=== PATIENT | female | born 1985 | race Caucasian/White ===

== ENCOUNTER 2021-11-13 11:10 | Outpatient (REF) | payer OTHER, SELFPAY ==
[2021-11-13 13:37] LABS: BV Int Neg Control Negative (Negative); BV Int Pos Control Positive (Positive)
== END 2021-11-13 11:11 | disposition home or self-care (01) ==
LOC: HO.LNP 11:10
PROVIDERS: Visit Provider Internal Medicine
DX: N34.2 Other urethritis (principal)
CPT/HCPCS: 87480; 87510; 87660

== ENCOUNTER 2021-11-13 11:11 | Outpatient (REF) | payer OTHER, SELFPAY ==
[2021-11-13 14:09] LABS: CT PCR NOT DETECTED (Not Detect.); NG PCR NOT DETECTED (Not Detect.)
== END 2021-11-13 11:12 | disposition home or self-care (01) ==
LOC: HO.LNP 11:11
PROVIDERS: Visit Provider Internal Medicine
DX: Z11.3 Encounter for screening for infections with a predominantly sexual mode of transmission (principal); N34.2 Other urethritis
CPT/HCPCS: 87491; 87591

== ENCOUNTER 2021-12-09 12:08 | Outpatient (REF) | payer OTHER, SELFPAY ==
[2021-12-09 13:38] LABS: MANUAL DIFF FLAG NO
[2021-12-09 13:43] LABS: Basophils Percent Auto 0.6 % (0-2); Eosinophils Percent Auto 0.4 % (0-4); Hematocrit 39.4 % (37.0-47.0); Hemoglobin 12.8 g/dl (12.0-16.0); Imm Gran Abs Auto 0.01 X10*3/uL (0.00-0.03); Imm Gran Pct Auto 0.2 % (0.0-0.4); Lymphocytes Absolute Auto 1.7 X10*3/uL (1.2-4.9); Lymphocytes Percent Auto 34.5 % (20-40); Mean Corpuscular HGB Conc 32.5 g/dl (31.0-35.0); Mean Corpuscular Hemoglobin 28.4 pg (27.0-33.0); Mean Corpuscular Volume 87.4 fL (80.0-98.0); Mean Platelet Volume 9.5 fL (9.4-12.3); Monocytes Absolute Auto 0.6 X10*3/uL (0.1-1.2); Monocytes Percent Auto 11.4 % (2-11); Neutrophils Absolute Auto 2.6 x10*3/uL (2.0-8.3); Neutrophils Percent Auto 52.9 % (45-73); Platelet Count 322 X10*3/uL (160-400); Red Blood Count 4.51 X10*6/uL (4.20-5.50); Red Cell Distribution Width 13.2 % (11.0-16.0)
[2021-12-09 13:55] LABS: Alanine Aminotransferase 24 U/L (0-31); Albumin Level 4.4 g/dL (3.5-5.0); Alkaline Phosphatase 47 U/L (39-117); Anion Gap 12 (12-20); Aspartate Amino Transferase 22 U/L (5-31); Bilirubin Total 0.5 mg/dL (0.0-1.0); Blood Urea Nitrogen 8 mg/dL (9-16); Calcium 9.1 mg/dL (8.4-10.2); Carbon Dioxide 20 mmol/L (22-29); Chloride 108 mmol/L (96-108); Estimated Glomerular Filt Rate > 60; Glucose Random 91 mg/dL (60-115); Potassium 3.7 mmol/L (3.3-5.1); Sodium 136 mmol/L (135-145); Total Protein 8.3 g/dL (6.5-8.0)
[2021-12-09 15:30] LABS: CT PCR NOT DETECTED (Not Detect.); NG PCR NOT DETECTED (Not Detect.)
[2021-12-10 09:35] LABS: BV Int Neg Control Negative (Negative); BV Int Pos Control Positive (Positive)
== END 2021-12-09 12:09 | disposition home or self-care (01) ==
LOC: HO.HMGCLDS 12:08
PROVIDERS: PCP Internal Medicine; Visit Provider Internal Medicine
DX: Z11.3 Encounter for screening for infections with a predominantly sexual mode of transmission (principal); R10.2 Pelvic and perineal pain; N89.8 Other specified noninflammatory disorders of vagina
CPT/HCPCS: 36415; 80053; 85025; 87480; 87491; 87510; 87591; 87660

== ENCOUNTER 2021-12-10 10:07 | Outpatient (REF) | payer OTHER, SELFPAY ==
[2021-12-10 11:14] LABS: Appearance Urine CLEAR; Color Urine YELLOW; Glucose Urine UA NEG (NEG); Leukocyte Esterase Urine NEG (NEG); Nitrite Urine POS (NEG); UACC Culture Trigger YES; Urine Blood NEG (NEG); Urine Ketones NEG (NEG); Urine Protein NEG (NEG-TRACE)
[2021-12-10 12:15] LABS: RBC Urine 0 /HPF (0); Squamous Epithelial Cell Urine TRACE /LPF; WBC Urine 0 /HPF (0-4)
== END 2021-12-10 10:08 | disposition home or self-care (01) ==
LOC: HO.HMGCLDS 10:07
PROVIDERS: Internal Medicine; Visit Provider Internal Medicine
DX: N39.0 Urinary tract infection, site not specified (principal)
CPT/HCPCS: 81001; 87086

== ENCOUNTER 2021-12-10 12:54 | Emergency (ER) | payer OTHER, SELFPAY | END 2021-12-10 14:47 | disposition left against medical advice (07) | PROVIDERS: Emergency Provider Emergency Medicine; PCP Internal Medicine | DX: M54.50 Low back pain, unspecified (principal) ==

== ENCOUNTER 2022-01-28 09:32 | Outpatient (REF) | payer OTHER, SELFPAY ==
[2022-01-28 10:31] LABS: Binax Internal Control QC Valid; Binax Now Covid-19 Ag Negative (Negative); Binax Performed by: HO.BONILM
[2022-01-28 11:08] LABS: MANUAL DIFF FLAG NO
[2022-01-28 11:28] LABS: Basophils Percent Auto 0.4 % (0-2); Eosinophils Percent Auto 0.4 % (0-4); Hematocrit 39.6 % (37.0-47.0); Hemoglobin 13.1 g/dl (12.0-16.0); Imm Gran Abs Auto 0.01 X10*3/uL (0.00-0.03); Imm Gran Pct Auto 0.2 % (0.0-0.4); Lymphocytes Absolute Auto 1.7 X10*3/uL (1.2-4.9); Lymphocytes Percent Auto 37.4 % (20-40); Mean Corpuscular HGB Conc 33.1 g/dl (31.0-35.0); Mean Corpuscular Volume 87.6 fL (80.0-98.0); Mean Platelet Volume 9.7 fL (9.4-12.3); Monocytes Absolute Auto 0.5 X10*3/uL (0.1-1.2); Neutrophils Absolute Auto 2.3 x10*3/uL (2.0-8.3); Neutrophils Percent Auto 50.6 % (45-73); Platelet Count 306 X10*3/uL (160-400); Red Blood Count 4.52 X10*6/uL (4.20-5.50); Red Cell Distribution Width 13.5 % (11.0-16.0); White Blood Count 4.5 X10*3/uL (4.8-10.8)
[2022-01-28 11:40] LABS: Alanine Aminotransferase 18 U/L (0-31); Albumin Level 4.2 g/dL (3.5-5.0); Alkaline Phosphatase 55 U/L (39-117); Anion Gap 14 (12-20); Aspartate Amino Transferase 18 U/L (5-31); Bilirubin Direct 0.2 mg/dL (0.0-0.5); Bilirubin Total 0.5 mg/dL (0.0-1.0); Blood Urea Nitrogen 7 mg/dL (9-16); Calcium 9.2 mg/dL (8.4-10.2); Carbon Dioxide 21 mmol/L (22-29); Chloride 108 mmol/L (96-108); Estimated Glomerular Filt Rate > 60; Glucose Random 82 mg/dL (60-115); Potassium 3.7 mmol/L (3.3-5.1); Sodium 139 mmol/L (135-145); Total Protein 8.2 g/dL (6.5-8.0)
== END 2022-01-28 09:33 | disposition home or self-care (01) ==
LOC: HO.HMGCLDS 09:32
PROVIDERS: PCP Internal Medicine; Visit Provider Physician Assistant Medical
DX: Z20.822 Contact with and (suspected) exposure to COVID-19 (principal); R10.9 Unspecified abdominal pain
CPT/HCPCS: 76700; 76705; 80048; 80076; 85025; 87811; C9803

== ENCOUNTER 2022-01-28 10:43 | Outpatient (REF) | payer OTHER, SELFPAY ==
--- NOTE | ~2022-01-28 | US_ITS ---
EXAMINATION: US ABDOMEN COMPLETE ULTRASOUND APPENDIX CLINICAL INFORMATION: Abdominal pain with right lower quadrant pain. COMPARISON: None TECHNIQUE: Real-time imaging of the abdominal viscera. FINDINGS: PANCREAS: Could not be seen secondary to overlying bowel gas ABDOMINAL AORTA: The proximal, mid, and distal segments are normal in caliber. INFERIOR VENA CAVA: Visualized portions are normal. LIVER: The liver is normal in size. The liver contour is normal. Parenchymal echogenicity is normal. No focal hepatic lesion. There is no intrahepatic biliary duct dilatation seen. GALLBLADDER: The gallbladder is physiologically distended without evidence of stones, sludge, polyps, wall thickening or pericholecystic fluid. COMMON BILE DUCT: Normal in caliber measuring 0.2 cm in diameter. RIGHT KIDNEY: No hydronephrosis. No renal calculi or focal parenchymal lesions. The kidney measures 11.2 cm in maximum dimension. LEFT KIDNEY: No hydronephrosis. No renal calculi or focal parenchymal lesions. The kidney measures 11.1 cm in maximum dimension. SPLEEN: Normal. The spleen measures 8.0 cm in maximum dimension. FREE FLUID: None. APPENDIX: The appendix was not identified. No tenderness was present in the right lower quadrant. No free fluid was seen. One normal-appearing lymph node in the right lower quadrant was noted measuring 1.1 x 0.2 x 0.9 cm. US/US abdomen complete IMPRESSION: Negative exam.. The appendix could not be seen and therefore the exam is indeterminate for appendicitis although no ancillary findings such as fluid collections, tenderness or inflammatory changes are seen.
--- NOTE | ~2022-01-28 | US_ITS ---
EXAMINATION: US ABDOMEN COMPLETE ULTRASOUND APPENDIX CLINICAL INFORMATION: Abdominal pain with right lower quadrant pain. COMPARISON: None TECHNIQUE: Real-time imaging of the abdominal viscera. FINDINGS: PANCREAS: Could not be seen secondary to overlying bowel gas ABDOMINAL AORTA: The proximal, mid, and distal segments are normal in caliber. INFERIOR VENA CAVA: Visualized portions are normal. LIVER: The liver is normal in size. The liver contour is normal. Parenchymal echogenicity is normal. No focal hepatic lesion. There is no intrahepatic biliary duct dilatation seen. GALLBLADDER: The gallbladder is physiologically distended without evidence of stones, sludge, polyps, wall thickening or pericholecystic fluid. COMMON BILE DUCT: Normal in caliber measuring 0.2 cm in diameter. RIGHT KIDNEY: No hydronephrosis. No renal calculi or focal parenchymal lesions. The kidney measures 11.2 cm in maximum dimension. LEFT KIDNEY: No hydronephrosis. No renal calculi or focal parenchymal lesions. The kidney measures 11.1 cm in maximum dimension. SPLEEN: Normal. The spleen measures 8.0 cm in maximum dimension. FREE FLUID: None. APPENDIX: The appendix was not identified. No tenderness was present in the right lower quadrant. No free fluid was seen. One normal-appearing lymph node in the right lower quadrant was noted measuring 1.1 x 0.2 x 0.9 cm. US/US appendix IMPRESSION: Negative exam.. The appendix could not be seen and therefore the exam is indeterminate for appendicitis although no ancillary findings such as fluid collections, tenderness or inflammatory changes are seen.
== END 2022-01-28 10:44 | disposition home or self-care (01) ==
LOC: HO.HMGCX 10:43
PROVIDERS: PCP Internal Medicine; Visit Provider Physician Assistant Medical
DX: Z13.89 Encounter for screening for other disorder (principal)
CPT/HCPCS: 76700; 76705

== ENCOUNTER 2022-03-04 11:47 | Outpatient (REF) | payer OTHER, SELFPAY ==
[2022-03-05 11:11] LABS: BV Int Neg Control Negative (Negative); BV Int Pos Control Positive (Positive)
== END 2022-03-04 11:48 | disposition home or self-care (01) ==
LOC: HO.LNP 11:47
PROVIDERS: Visit Provider Internal Medicine
DX: N30.90 Cystitis, unspecified without hematuria (principal); R10.2 Pelvic and perineal pain; N89.8 Other specified noninflammatory disorders of vagina
CPT/HCPCS: 87086; 87480; 87510; 87660

== ENCOUNTER 2023-01-26 14:55 | Outpatient (REF) | payer OTHER, SELFPAY ==
[2023-01-26 17:48] LABS: Appearance Urine Clear; Color Urine Yellow; Glucose Urine UA Negative (Negative); Leukocyte Esterase Urine Negative (Negative); Nitrite Urine Negative (Negative); Specific Gravity - Urine <= 1.005 (1.005-1.025); Urine Blood Negative (Negative); Urine Ketones Negative (Negative); Urine Protein Negative (Neg-Trace)
== END 2023-01-26 14:56 | disposition home or self-care (01) ==
LOC: HO.LAB 14:55
PROVIDERS: PCP Internal Medicine; Visit Provider Nurse Practitioner Family
DX: K58.1 Irritable bowel syndrome with constipation (principal); R30.9 Painful micturition, unspecified; R14.0 Abdominal distension (gaseous); R10.30 Lower abdominal pain, unspecified
CPT/HCPCS: 81003

== ENCOUNTER 2023-01-26 14:55 | Outpatient (AMB) | payer OTHER, SELFPAY ==
--- NOTE | 2023-01-26 15:16 | A.OFFVIS_ITS ---
Intake Vital Signs 01/26/23 15:18 Height 5 ft Weight 99 lb 3.328 oz BMI 19.4 BP 111/74 Blood Pressure Location Lt brachial Position Sitting Pulse 89 Intake Visit Reasons: IBS/previous Dr. rowland PT Intake Note: Dimple presents in the office as a new patient. CC: She states that she has been losing weight. She has been having bloating, BMs have not been fully emptying and she is not satisfied after. She is not sure if this could be something thyroid related - or thyroid medication. Pulp Beater Required: No Allergies No Known Allergies [No Known Allergies*] Allergy (Verified 01/26/23 15:18) Environmental Allergy (Unknown, Uncoded 01/26/23 15:18) Unknown HPI IBS/previous Dr. rowland PT HPI Details 37-year-old female with past medical his tory of hypothyroidism, IBS, cystitis, UTI, gastroenteritis, anxiety is here today requesting to be seen. Patient previously was seen by Dr. Rowland. Diagnosed by her with IBS. Currently patient reports that she has been having recurrent symptoms. Patient reports pelvic and left lower quadrant discomfort. Patient was tested for UTI and test came back negative couple days ago. Patient states that she continues to have a pelvic pain when urinating. States feeling full. Patient recently was diagnosed with hypothyroidism and started on hormone replacement. She is currently on levothyroxine 50 mcg daily. Patient reports that she is moving her bowels, however she feels frequently very bloated. Feels like she does not empty her bowels completely. Denies any nausea or vomiting. Denies any diarrhea. Denies any melena, hematochezia, unintentional weight loss or ribbon like stools. Patient reports her mom was diagnosed at age 42 with colorectal cancer. [facility] Social History Housing: House Patient Tobacco Use Status: Never used Tobacco e-Cigarette/Vaping Use: Never Used Second Hand Smoke Exposure: No service: No Current occupational status: employed Current occupation: [employer] Current occupational exposures/hazards: No Cognitive needs: No Hearing needs: No Vision needs: No Review of Systems Const Denies weight gain and Denies weight loss ENT Reports no additional complaints, Denies dysphagia and Denies odynophagia Card Reports no additional complaints Resp Reports no additional complaints GI Denies abdominal pain, Denies belching, Denies melena, Reports bloating, Reports constipation, Denies dysphagia, Denies excessive flatus, Denies dyspepsia, Denies heartburn, Denies diarrhea, Denies loose stools, Denies nausea, Denies odynophagia and Denies vomiting Reports dysuria Musc Reports no additional complaints Neuro Reports no additional complaints Psych Reports no additional complaints Endo Reports no additional complaints Physical Exam Vital Signs: Last Vital Signs Pulse 89 01/26/23 15:18 BP 111/74 01/26/23 15:18 BMI result Body Mass Index 19.4 Const General: healthy appearing, no acute distress and well developed Nutritional Appearance: well nourished Orientation/consciousness: patient oriented x3 HEENT Head: Yes normal to inspection, Yes normocephalic and Yes atraumatic Face and sinus: Yes normal facial exam Mouth: Normal oral and palatal mucosa present Throat: Yes posterior oropharynx normal, Yes tonsils normal and Yes uvula midline Eyes General: appearance normal, both eyes and all related structures Neck Neck: Yes normal visual inspection, Yes full ROM and Yes trachea midline Thyroid: Thyroid normal Resp Effort & Inspection: normal respiratory effort, able to speak in complete sentences, no tracheal deviation and symmetric chest movement Auscultation: clear to auscultation bilaterally Cardio Rate: regular rate Heart sounds: S1 normal heart sound present and S2 normal heart sound present GI Inspection: Yes normal to inspection and No distended Palpation (GI): Soft to palpation, not firm, nontender and No hepatosplenomegaly present Auscultation: normal bowel sounds General: Yes no CVA tenderness Back/Spine/Pelvis Back: no CVA tenderness Skin General skin exam: elasticity normal, turgor normal and dry skin Neuro General: patient oriented x3 Psych Appearance: grossly normal Mental Status: mental status grossly normal Speech and movement: Normal speech and movement present Assessment & Plan Assessment & Plan (1) IBS (irritable bowel syndrome): Code(s): K58.9 - Irritable bowel syndrome without diarrhea Qualifiers: Irritable bowel syndrome type: with constipation Qualified Code(s): K58.1 - Irritable bowel syndrome with constipation Plan: Discussed with patient will FODMAP diet. List of food recommended as well as list of food to avoid given to patient. Patient is some emptying her bowels completely. Will have her start taking Senokot and increase fluid intake and activity to promote better bowel motility. (2) Abdominal bloating: Code(s): R14.0 - Abdominal distension (gaseous) Plan: Patient reports abdominal bloating feeling full even after bowel movement. Senna as mentioned above, increase fluid intake. Low FODMAP diet (3) Abdominal pain: Code(s): R10.9 - Unspecified abdominal pain Qualifiers: Abdominal location: lower abdomen, unspecified Qualified Code(s): R10.30 - Lower abdominal pain, unspecified Plan: Patient reports low abdominal discomfort almost in pelvic area. Patient reports feeling full. Will repeat urinalysis. Will treat empirically if positive for UTI. Patient was encouraged to increase fluid intake. I will see her in 5 weeks, sooner on as needed basis. Patient is agreeable to this plan and verbalizes understanding of instructions. She was given the opportunity to ask questions and all questions answered. Thank you for allowing me to participate in her care Orders: Orders UA CC w/rflx Micro + Cult 01/26/23 R30.9 - Painful micturition, unspecified Medications: New sennosides (Natural Senna Laxative) 17.2 mg (2 x 8.6 mg) PO BEDTIME 60 tabs 1RF constipation K59.00 - Constipation, unspecified Coding Level of Care Code New Pt Level 4 (19606) Diagnoses Irritable bowel syndrome with constipation K58.1 Irritable bowel syndrome type: with constipation Abdominal bloating R14.0 Lower abdominal pain R10.30 Abdominal location: lower abdomen, unspecified Time Spent (min) 45 Comment 30 minutes spent with patient and additional 15 minutes spent reviewing her records
[2023-01-26 15:18] VITALS: BP 111/74; PULSE 89; BMI 19.4
== END 2023-01-26 16:27 | disposition home or self-care (01) ==
PROVIDERS: PCP Internal Medicine; Visit Provider Nurse Practitioner Family
DX: K58.1 Irritable bowel syndrome with constipation (principal); R14.0 Abdominal distension (gaseous); R10.30 Lower abdominal pain, unspecified
CPT/HCPCS: 99204

== ENCOUNTER 2023-02-01 13:43 | Outpatient (AMB) | payer OTHER, SELFPAY ==
--- NOTE | 2023-02-01 13:43 | MHC.PC.OV ---
Intake Visit Reasons: Hypothyroidism (Adult) Allergies No Known Allergies [No Known Allergies*] Allergy (Verified 02/01/23 13:44) Environmental Allergy (Unknown, Uncoded 01/26/23 15:18) Unknown Medication List - Last Reconciled 02/01/23 by Bakari Cadena MD drospirenone-ethinyl estradiol 3-0.03 mg (Izzy (28)) 1 tab PO BEDTIME levothyroxine 50 mcg PO DAILY lorazepam 0.5 mg PO DAILY PRN 90 days sennosides (Natural Senna Laxative) 17.2 mg (2 x 8.6 mg) PO BEDTIME Tobacco use date assessed: 02/01/23 Dental Screening Dental Screen Date: 02/01/23 Did you have a dental visit in the last 12 months?: No Did you have a dental problem in the last 6 months where you did not have access to dental care?: No Was dental information given to patient?: Patient has dentist HPI Hypothyroidism (Adult) HPI Details Patient is a 37-year-old female this is a telemedicine video conference Anxiety: Patient has eating sided disorder and also get a panic Prescribed Lexapro 5 mg patient has still not started taking, she is taking lorazepam 0.5 mg as needed. Advised patient to start Lexapro, I have sent 30 tablets. She is seeing [facility] helper currently for hypothyroidism and is taking medication through them We will create a follow-up visit for her anxiety [facility] Social History Housing: House Patient Tobacco Use Status: Never used Tobacco e-Cigarette/Vaping Use: Never Used Second Hand Smoke Exposure: No service: No Current occupational status: employed Current occupation: [employer] Current occupational exposures/hazards: No Cognitive needs: No Hearing needs: No Vision needs: No Questionnaire Thrive Questionnaire Date Thrive assessed: 07/07/21 AUDIT C Alcohol Use Questionnaire (AUDIT-C) 1. How often do you have a drink containing alcohol?: Never 3. How often do you have six or more drinks on one occasion?: Never Total Score: 0 Score Reviewed/Action Taken: Yes TRIXIE-7 AMB Questionnaire TRIXIE-7 Date TRIXIE - 7 assessed: 07/07/21 Source: Developed by Drs. Brandon Ashley, Anh MccallRoberto and colleagues, with an educational angel from [employer]. Review of Systems Const Denies chills and Denies fever(s) ENT Denies epistaxis and Denies nasal discharge Resp Denies chest congestion, Denies cough and Denies hemoptysis GI Denies diarrhea and Denies nausea Skin/Breast Denies rash Neuro Reports no additional complaints Psych Reports no additional complaints Endo Reports no additional complaints Physical exam (Primary Care) Tobacco/Smoking Status: Tobacco use Status Tobacco use date assessed 02/01/23 02/01/23 13:44 Patient Tobacco Use Status Never used Tobacco 02/01/23 13:44 e-Cigarette/Vaping Use Never Used 02/01/23 13:44 Thrive Assessment: Date of Thrive Assessment Date Thrive assessed 07/07/21 02/01/23 13:44 Telehealth Telehealth Location of provider rendering services: practice address Location of patient: address on file Patient Identification confirmed using: Name, : Yes Telehealth method: video Patient verbally consented to treatment: Yes Patient verbally consented to billing insurance company: Yes Patient informed of any privacy concerns related to visit: Yes Minutes spent on Phone/Video with Pt.: 14 Assessment and Plan Assessment & Plan (1) Anxiety, generalized: Code(s): F41.1 - Generalized anxiety disorder Plan Patient is a 37-year-old female this is a telemedicine video conference Anxiety: Patient has eating sided disorder and also get a panic Prescribed Lexapro 5 mg patient has still not started taking, she is taking lorazepam 0.5 mg as needed. Advised patient to start Lexapro, I have sent 30 tablets. She is seeing insulation helper currently for hypothyroidism and is taking medication through them We will create a follow-up visit for her anxiety Medications: Refilled escitalopram oxalate 5 mg PO DAILY 30 days 30 tabs 0RF Coding Level of Care Code Tele Est Pt Level 3 (51675) Diagnoses Anxiety, generalized F41.1
== END 2023-02-01 14:52 | disposition home or self-care (01) ==
LOC: HO.HMGC 13:43
PROVIDERS: PCP Internal Medicine; Visit Provider Internal Medicine
DX: F41.1 Generalized anxiety disorder (principal)
CPT/HCPCS: 99213

== ENCOUNTER 2023-02-03 12:13 | Outpatient (AMB) | payer OTHER, SELFPAY ==
[2023-02-03 12:13] VITALS: BP 126/88; PULSE 81; TEMP 37.1; O2SAT 98; BMI 19.8
--- NOTE | 2023-02-03 12:13 | MHC.OFFWIV ---
Intake Vital Signs 02/03/23 12:13 Height 5 ft Weight 101 lb 8 oz BMI 19.8 BP 126/88 Blood Pressure Location Lt brachial Position Sitting Pulse 81 Pulse Source Pulse Oximeter Temp 98.7 F Temp Source Oral Pulse Oximetry (%) 98 Oxygen Delivery Method Room Air Intake Visit Reasons: EST/chest pain /anxiety Intake Note: Pt is here today for chest pain and anxiety Pt states she's feeling been feeling like this for a wk. Patient Tobacco Use Status: Never used Tobacco Allergies No Known Allergies [No Known Allergies*] Allergy (Verified 02/03/23 12:13) Environmental Allergy (Unknown, Uncoded 01/26/23 15:18) Unknown HPI HPI Comments History of Present Illness Details The patient presents to urgent care for evaluation of anxiety and chest pain. She states that she started taking control a couple of weeks ago and was switched to the generic version of since that occurred she has been having a great of anxiety. She is crying all the time and does not feel like herself. In addition she was diagnosed a month or so ago with hypothyroidism and started on levothyroxine. Her TSH has improved though it is still abnormal at 11. The patient spoke to her PCP about this and was prescribed Lexapro 5 mg but has been hesitant to start this as she read the side effect profile and is concerned about the possibility developing suicidal thoughts. [facility] Social History Housing: House Patient Tobacco Use Status: Never used Tobacco e-Cigarette/Vaping Use: Never Used Second Hand Smoke Exposure: No service: No Current occupational status: employed Current occupation: [employer] Current occupational exposures/hazards: No Cognitive needs: No Hearing needs: No Vision needs: No Physical Exam Vital Signs: Last Vital Signs Temp 98.7 F 02/03/23 12:13 Pulse 81 02/03/23 12:13 BP 126/88 02/03/23 12:13 Pulse Ox 98 02/03/23 12:13 Oxygen Delivery Method Room Air 02/03/23 12:13 BMI result Body Mass Index 19.8 Const General: healthy appearing, no acute distress and anxious Orientation/consciousness: patient oriented x3 Eyes Corneas: corneas normal Pupils: Equal, round and reactive pupils present Chest Chest palpation & inspection: no tenderness Resp Effort & Inspection: normal respiratory effort and able to speak in complete sentences GI Palpation (GI): nontender Neuro General: patient oriented x3 Cranial nerves: Yes Equal, round and reactive pupils present Psych Other: crying Appearance: grossly normal Attitude: cooperative Assessment & Plan Assessment & Plan (1) Anxiety, generalized: Code(s): F41.1 - Generalized anxiety disorder Plan EKG: Normal sinus rhythm no ST T-wave changes suggesting acute ischemia as interpreted by me. Patient's symptoms consistent with acute anxiety. This may be a result of hormone therapy from control pills. She reports that she is not worried about and was only taking him for acne. She has discontinued taking the control pills as of last night and wishes to get off of them at this point. I think this is a reasonable plan. We discussed staying on her thyroid medication as her thyroid has not improved to normal range as of yet. In addition I recommend patient start the Lexapro. She is starting very low-dose recommend follow-up with PCP in 1-2 weeks or return here for any reason patient agreeable this plan. Coding Level of Care Code Est Pt Level 3 (59706) Diagnoses Anxiety, generalized F41.1
== END 2023-02-03 12:55 | disposition home or self-care (01) ==
PROVIDERS: PCP Internal Medicine; Visit Provider Emergency Medicine
DX: F41.1 Generalized anxiety disorder (principal)
CPT/HCPCS: 99213

== ENCOUNTER 2023-02-09 13:27 | Outpatient (AMB) | payer OTHER, SELFPAY ==
--- NOTE | 2023-02-09 13:28 | A.OFFPC_ITS ---
Intake Visit Reasons: Anxiety /FMLA, Not feeling well Allergies No Known Allergies [No Known Allergies*] Allergy (Verified 02/09/23 13:28) Environmental Allergy (Unknown, Uncoded 02/09/23 13:17) Unknown Medication List - Last Reconciled 02/09/23 by Bakari Cadena MD drospirenone-ethinyl estradiol 3-0.03 mg (Izzy (28)) 1 tab PO BEDTIME escitalopram oxalate 5 mg PO DAILY 30 days levothyroxine 50 mcg PO DAILY lorazepam 0.5 mg PO DAILY PRN 90 days sennosides (Natural Senna Laxative) 17.2 mg (2 x 8.6 mg) PO BEDTIME Tobacco use date assessed: 02/09/23 Dental Screening Dental Screen Date: 02/09/23 Did you have a dental visit in the last 12 months?: Yes Did you have a dental problem in the last 6 months where you did not have access to dental care?: No Was dental information given to patient?: Patient has dentist HPI Anxiety /FMLA HPI Details Patient is a 37-year-old female who came in today to be evaluated for possible COVID infection Is having nasal congestion and headache for the past 24 hours. COVID test taken. Patient also suffer from severe anxiety panic disorder, finally she has started taking Lexapro 5 mg 2 days ago. She has brought of FMLA paperwork to be filled for work as she has been missing work due to anxiety. We will book a virtual visit for paperwork, as patient is ill today. Vital signs: Patient's BMI is 20.1 Blood pressure is 110/70 Pulse is 72 Pulse ox is 97 room air Temperature is 97 degrees F temporal [facility] Social History Housing: House Patient Tobacco Use Status: Never used Tobacco e-Cigarette/Vaping Use: Never Used Second Hand Smoke Exposure: No service: No Current occupational status: employed Current occupation: [employer] Current occupational exposures/hazards: No Cognitive needs: No Hearing needs: No Vision needs: No Questionnaire Thrive Questionnaire Date Thrive assessed: 07/07/21 TRIXIE-7 AMB Questionnaire TRIXIE-7 Date TRIXIE - 7 assessed: 07/07/21 Source: Developed by Drs. Brandon Ashley, Anh B.W. Roberto Mccall and colleagues, with an educational angel from [employer]. Review of Systems Const All systems reviewed & are unremarkable except as noted in HPI and below Physical exam (Primary Care) Tobacco/Smoking Status: Tobacco use Status Tobacco use date assessed 02/09/23 02/09/23 13:28 Patient Tobacco Use Status Never used Tobacco 02/09/23 13:28 e-Cigarette/Vaping Use Never Used 02/09/23 13:28 Thrive Assessment: Date of Thrive Assessment Date Thrive assessed 07/07/21 02/09/23 13:28 Const General: no acute distress HENMT Ears: mastoids normal General nose exam: Normal external nose present Neck Neck: Yes no lymphadenopathy Resp Effort & Inspection: normal respiratory effort Auscultation: clear to auscultation bilaterally Psych Mental Status: mental status grossly normal Assessment and Plan Assessment & Plan (1) Upper respiratory tract infection: Code(s): J06.9 - Acute upper respiratory infection, unspecified (2) Panic anxiety syndrome: Code(s): F41.0 - Panic disorder [episodic paroxysmal anxiety] Plan Patient is a 37-year-old female who came in today to be evaluated for possible COVID infection Is having nasal congestion and headache for the past 24 hours. COVID test taken. Patient also suffer from severe anxiety panic disorder, finally she has started taking Lexapro 5 mg 2 days ago. She has brought of [facility] paperwork to be filled for work as she has been missing work due to anxiety. We will book a virtual visit for paperwork, as patient is ill today. Coding Level of Care Code Est Pt Level 3 (80170) Diagnoses Upper respiratory tract infection J06.9 Panic anxiety syndrome F41.0
== END 2023-02-09 14:31 | disposition home or self-care (01) ==
LOC: HO.HMGC 13:27
PROVIDERS: PCP Internal Medicine; Visit Provider Internal Medicine
DX: J06.9 Acute upper respiratory infection, unspecified (principal); F41.0 Panic disorder [episodic paroxysmal anxiety]
CPT/HCPCS: 99213

== ENCOUNTER 2023-02-09 13:33 | Outpatient (REF) | payer OTHER, SELFPAY ==
[2023-02-09 17:11] LABS: Influenza A PCR NEGATIVE (Negative); Influenza B PCR NEGATIVE (Negative); Resp Syncy Virus RNA Qual PCR NEGATIVE (Negative); SARS COV2 PCR INHOUSE NEGATIVE (Negative)
== END 2023-02-09 13:34 | disposition home or self-care (01) ==
LOC: HO.LAB 13:33
PROVIDERS: Visit Provider Internal Medicine
DX: R09.89 Other specified symptoms and signs involving the circulatory and respiratory systems (principal); Z20.822 Contact with and (suspected) exposure to COVID-19
CPT/HCPCS: 0241U

== ENCOUNTER 2023-02-10 09:19 | Outpatient (AMB) | payer OTHER, SELFPAY ==
--- NOTE | 2023-02-10 09:25 | MHC.PC.OV ---
Intake Visit Reasons: FMLA Allergies No Known Allergies [No Known Allergies*] Allergy (Verified 02/10/23 09:25) Environmental Allergy (Unknown, Uncoded 02/09/23 13:17) Unknown Medication List - Last Reconciled 02/10/23 by Bakari Cadena MD drospirenone-ethinyl estradiol 3-0.03 mg (Izzy (28)) 1 tab PO BEDTIME escitalopram oxalate 5 mg PO DAILY 30 days levothyroxine 50 mcg PO DAILY lorazepam 0.5 mg PO DAILY PRN 90 days sennosides (Natural Senna Laxative) 17.2 mg (2 x 8.6 mg) PO BEDTIME Tobacco use date assessed: 02/10/23 Dental Screening Dental Screen Date: 02/10/23 Did you have a dental visit in the last 12 months?: Yes Did you have a dental problem in the last 6 months where you did not have access to dental care?: No Was dental information given to patient?: Patient has dentist HPI FMLA HPI Details Pt is 37 year old female, who suffers from anxiety sever enough that its now causing difficulty for her to work . She is seeing a therapist on a weekly basis, I have been trying to get patient to start medication which she was reluctant to start until recently she started taking the medication early this month. She is currently on Lexapro 5 mg. Patient says that she is tolerating medication and is doing fine. She want to give some time for medication to start working and that is why she need time off from work. I have filled her FMLA paperwork today for intermittent absence from work, currently patient is working 5 days a week 8 hours daily She may start working 3 days a week. I also would like patient to see a psychiatrist for ongoing treatment. We will book and other follow-up appointment in 3 weeks to see if we need to titrate the medication little bit higher. [facility] Social History Housing: House Patient Tobacco Use Status: Never used Tobacco e-Cigarette/Vaping Use: Never Used Second Hand Smoke Exposure: No service: No Current occupational status: employed Current occupation: [employer] Current occupational exposures/hazards: No Cognitive needs: No Hearing needs: No Vision needs: No Questionnaire Thrive Questionnaire Date Thrive assessed: 07/07/21 AUDIT C Alcohol Use Questionnaire (AUDIT-C) 1. How often do you have a drink containing alcohol?: Never 3. How often do you have six or more drinks on one occasion?: Never Total Score: 0 Score Reviewed/Action Taken: Yes TRIXIE-7 AMB Questionnaire TRIXIE-7 Date TRIXIE - 7 assessed: 07/07/21 Source: Developed by Drs. Brandon Ashley, Anh Mccall, Roberto Butt and colleagues, with an educational angel from [employer]. Review of Systems Const Denies chills and Denies fever(s) ENT Denies epistaxis and Denies nasal discharge Card Denies chest pain Resp Denies chest congestion, Denies cough and Denies hemoptysis GI Denies diarrhea and Denies nausea Skin/Breast Denies rash Neuro Reports no additional complaints Psych Reports no additional complaints Endo Reports no additional complaints Physical exam (Primary Care) Tobacco/Smoking Status: Tobacco use Status Tobacco use date assessed 02/10/23 02/10/23 09:25 Patient Tobacco Use Status Never used Tobacco 02/10/23 09:25 e-Cigarette/Vaping Use Never Used 02/10/23 09:25 Thrive Assessment: Date of Thrive Assessment Date Thrive assessed 07/07/21 02/10/23 09:25 Telehealth Telehealth Location of provider rendering services: practice address Location of patient: address on file Patient Identification confirmed using: Name, : Yes Telehealth method: video Patient verbally consented to treatment: Yes Patient verbally consented to billing insurance company: Yes Patient informed of any privacy concerns related to visit: Yes Assessment and Plan Assessment & Plan (1) Panic anxiety syndrome: Code(s): F41.0 - Panic disorder [episodic paroxysmal anxiety] (2) Major depression, recurrent: Code(s): F33.9 - Major depressive disorder, recurrent, unspecified Qualifiers: Active/Remission status: currently active Major depression episode severity: moderate Qualified Code(s): F33.1 - Major depressive disorder, recurrent, moderate Plan Pt is 37 year old female, who suffers from anxiety sever enough that its now causing difficulty for her to work . She is seeing a therapist on a weekly basis, I have been trying to get patient to start medication which she was reluctant to start until recently she started taking the medication early this month. She is currently on Lexapro 5 mg. Patient says that she is tolerating medication and is doing fine. She want to give some time for medication to start working and that is why she need time off from work. I have filled her [place] paperwork today for intermittent absence from work, currently patient is working 5 days a week 8 hours daily She may start working 3 days a week. I also would like patient to see a psychiatrist for ongoing treatment. We will book and other follow-up appointment in 3 weeks to see if we need to titrate the medication little bit higher. Coding Level of Care Code Tele Est Pt Level 4 (55735) Diagnoses Panic anxiety syndrome F41.0 Moderate episode of recurrent major depressive disorder F33.1 Active/Remission status: currently active Major depression episode severity: moderate Time Spent (min) 32 Comment 5 prep, 20 with patient, 7 charting / paperwork
== END 2023-02-10 12:05 | disposition home or self-care (01) ==
LOC: HO.HMGC 09:20
PROVIDERS: PCP Internal Medicine; Visit Provider Internal Medicine
DX: F41.0 Panic disorder [episodic paroxysmal anxiety] (principal); F33.1 Major depressive disorder, recurrent, moderate
CPT/HCPCS: 99214

== ENCOUNTER 2023-02-22 09:05 | Outpatient (AMB) | payer OTHER, SELFPAY ==
--- NOTE | 2023-02-22 09:09 | MHC.PC.OV ---
Intake Visit Reasons: 3 wk Follow Up~ Allergies No Known Allergies [No Known Allergies*] Allergy (Verified 02/22/23 09:10) Environmental Allergy (Unknown, Uncoded 02/09/23 13:17) Unknown Medication List - Last Reconciled 02/22/23 by Bakari Cadena MD drospirenone-ethinyl estradiol 3-0.03 mg (Izzy (28)) 1 tab PO BEDTIME escitalopram oxalate 5 mg PO DAILY 30 days levothyroxine 50 mcg PO DAILY lorazepam 0.5 mg PO DAILY PRN 90 days sennosides (Natural Senna Laxative) 17.2 mg (2 x 8.6 mg) PO BEDTIME Tobacco use date assessed: 02/22/23 Dental Screening Dental Screen Date: 02/22/23 Did you have a dental visit in the last 12 months?: Yes Did you have a dental problem in the last 6 months where you did not have access to dental care?: No Was dental information given to patient?: Patient has dentist HPI 3 wk Follow Up~ HPI Details Patient is 37-year-old female this is a telemedicine video conference Patient have severe anxiety disorder which was disrupting her life, Patient felt as if she cannot continue to work and she applied for FMLA She was started on Lexapro 5 mg she is doing better and is able to continue her work. I would like her to increase the dose to 10 mg which she is reluctant. Patient says that she would like to wait another 2 weeks. We will book another appointment in 2 weeks for follow-up. COUNT INCLUDES THE [facility] Social History Housing: [place] Patient Tobacco Use Status: Never used Tobacco e-Cigarette/Vaping Use: Never Used Second Hand Smoke Exposure: No service: No Current occupational status: employed Current occupation: [employer] Current occupational exposures/hazards: No Cognitive needs: No Hearing needs: No Vision needs: No Questionnaire PHQ-9 Over the last 2 weeks, how often have you been bothered by any of the following problems? 1. Little interest or pleasure in doing things: not at all 2. Feeling down, depressed, or hopeless: several days 3. Trouble falling or staying asleep, or sleeping too much: several days 4. Feeling tired or having little energy: several days 5. Poor appetite or overeating: not at all 6. Feeling bad about yourself - or that you are a failure or have let yourself or your family down: not at all 7. Trouble concentrating on things, such as reading the newspaper or watching television: not at all 8. Moving or speaking so slowly that other people could have noticed. Or the opposite - being so fidgety or restless that you have been moving around a lot more than usual: not at all 9. Thoughts that you would be better off or of hurting yourself in some way: not at all Total score: 3 Depression Screening Interpretation: Negative Depression Screening Done: Yes 52113 - PHQ-9 Billing: Yes Source: Developed by Drs. Brandon Ashley, Roberto Shannon and colleagues, with an educational angel from [employer]. Thrive Questionnaire Date Thrive assessed: 07/07/21 AUDIT C Alcohol Use Questionnaire (AUDIT-C) 1. How often do you have a drink containing alcohol?: Never 3. How often do you have six or more drinks on one occasion?: Never Total Score: 0 Score Reviewed/Action Taken: Yes TRIXIE-7 AMB Questionnaire TRIXIE-7 Date TRIXIE - 7 assessed: 02/22/23 Feeling nervous, anxious, or on edge: 1 = Several days Not being able to stop or control worryin = More than half the days Worrying too much about different things: 2 = More than half the days Trouble relaxin = Not at all Being so restless that it is hard to sit still: 0 = Not at all Becoming easily annoyed or irritable: 0 = Not at all Feeling afraid as if something awful might happen: 1 = Several days Total TRIXIE-7 score (0-4 normal; 5-9 mild; 10-14 moderate; 15-21 severe): 6 Source: Developed by Drs. Brandon Ashley, Roberto Shannon and colleagues, with an educational angel from [employer]. TRIXIE-7 Assessment Billing TRIXIE-7 Assessment Tool: TRIXIE-7 Assessment 66446 Review of Systems Const Denies chills and Denies fever(s) ENT Denies epistaxis and Denies nasal discharge Card Denies chest pain Resp Denies chest congestion, Denies cough and Denies hemoptysis GI Denies diarrhea and Denies nausea Skin/Breast Denies rash Neuro Reports no additional complaints Psych Reports no additional complaints Endo Reports no additional complaints Physical exam (Primary Care) Tobacco/Smoking Status: Tobacco use Status Tobacco use date assessed 02/22/23 02/22/23 09:10 Patient Tobacco Use Status Never used Tobacco 02/22/23 09:09 e-Cigarette/Vaping Use Never Used 02/22/23 09:09 PHQ-9: PHQ-9 Score PHQ-9: Total score 3 02/22/23 09:10 Depression Screening Interpretation: Negative Thrive Assessment: Date of Thrive Assessment Date Thrive assessed 07/07/21 02/22/23 09:09 Telehealth Telehealth Location of provider rendering services: practice address Location of patient: address on file Patient Identification confirmed using: Name, : Yes Telehealth method: video Patient verbally consented to treatment: Yes Patient verbally consented to billing insurance company: Yes Patient informed of any privacy concerns related to visit: Yes Minutes spent on Phone/Video with Pt.: 13 Assessment and Plan Assessment & Plan (1) Panic anxiety syndrome: Code(s): F41.0 - Panic disorder [episodic paroxysmal anxiety] (2) Major depression, recurrent: Code(s): F33.9 - Major depressive disorder, recurrent, unspecified Qualifiers: Active/Remission status: currently active Major depression episode severity: moderate Qualified Code(s): F33.1 - Major depressive disorder, recurrent, moderate Plan Patient is 37-year-old female this is a telemedicine video conference Patient have severe anxiety disorder which was disrupting her life, Patient felt as if she cannot continue to work and she applied for FMLA She was started on Lexapro 5 mg she is doing better and is able to continue her work. I would like her to increase the dose to 10 mg which she is reluctant. Patient says that she would like to wait another 2 weeks. We will book another appointment in 2 weeks for follow-up. Coding Level of Care Code Tele Est Pt Level 3 (30346) Diagnoses Panic anxiety syndrome F41.0 Moderate episode of recurrent major depressive disorder F33.1 Active/Remission status: currently active Major depression episode severity: moderate Additional Codes TRIXIE-7 Assessment Billing - TRIXIE-7 Assessment Tool: TRIXIE-7 Assessment 29387 ([id number])
== END 2023-02-22 09:31 | disposition home or self-care (01) ==
LOC: HO.HMGC 09:05
PROVIDERS: PCP Internal Medicine; Visit Provider Internal Medicine
DX: F41.0 Panic disorder [episodic paroxysmal anxiety] (principal); F33.1 Major depressive disorder, recurrent, moderate
CPT/HCPCS: 99213

== ENCOUNTER 2023-03-03 08:43 | Outpatient (AMB) | payer OTHER, SELFPAY ==
--- NOTE | 2023-03-03 09:36 | MHC.PC.OV ---
Intake Visit Reasons: 3 Wk Follow Up ~ Allergies No Known Allergies [No Known Allergies*] Allergy (Verified 02/22/23 09:10) Environmental Allergy (Unknown, Uncoded 02/09/23 13:17) Unknown Medication List - Last Reconciled 03/03/23 by Bakari Cadena MD escitalopram oxalate 10 mg PO DAILY 30 days levothyroxine 50 mcg PO DAILY lorazepam 0.5 mg PO DAILY PRN 90 days Tobacco use date assessed: 03/03/23 Dental Screening Dental Screen Date: 03/03/23 Did you have a dental visit in the last 12 months?: Yes Did you have a dental problem in the last 6 months where you did not have access to dental care?: No Was dental information given to patient?: Patient has dentist HPI 3 Wk Follow Up ~ HPI Details Patient is 37-year-old female this is a telemedicine follow-up on anxiety Patient is not taking Lexapro 5 mg, I did increase the dose to 10 last visit but patient is more comfortable with 5 mg and she is feeling better. She continued to work, patient says that if she has bad day then she will use her FMLA and stay home. But for the most part she is feeling better and is working continue sleepy. She is seeing a therapist and do not want to see a psychiatrist. Follow-up 3 months [facility] Social History Housing: House Patient Tobacco Use Status: Never used Tobacco e-Cigarette/Vaping Use: Never Used Second Hand Smoke Exposure: No service: No Current occupational status: employed Current occupation: [employer] Current occupational exposures/hazards: No Cognitive needs: No Hearing needs: No Vision needs: No Questionnaire Thrive Questionnaire Date Thrive assessed: 07/07/21 AUDIT C Alcohol Use Questionnaire (AUDIT-C) 1. How often do you have a drink containing alcohol?: Never 3. How often do you have six or more drinks on one occasion?: Never Total Score: 0 Score Reviewed/Action Taken: Yes TRIXIE-7 AMB Questionnaire TRIXIE-7 Date TRIXIE - 7 assessed: 02/22/23 Source: Developed by Drs. Brandon Ashley, Anh Mccall, Roberto Butt and colleagues, with an educational angel from [employer]. Review of Systems Const Denies chills and Denies fever(s) ENT Denies epistaxis and Denies nasal discharge Card Denies chest pain Resp Denies chest congestion, Denies cough and Denies hemoptysis GI Denies diarrhea and Denies nausea Skin/Breast Denies rash Neuro Reports no additional complaints Psych Reports no additional complaints Endo Reports no additional complaints Physical exam (Primary Care) Tobacco/Smoking Status: Tobacco use Status Tobacco use date assessed 03/03/23 03/03/23 09:37 Patient Tobacco Use Status Never used Tobacco 03/03/23 09:37 e-Cigarette/Vaping Use Never Used 03/03/23 09:37 Thrive Assessment: Date of Thrive Assessment Date Thrive assessed 07/07/21 03/03/23 09:37 Telehealth Telehealth Location of provider rendering services: practice address Location of patient: address on file Patient Identification confirmed using: Name, : Yes Telehealth method: voice only Patient verbally consented to treatment: Yes Patient verbally consented to billing insurance company: Yes Patient informed of any privacy concerns related to visit: Yes Minutes spent on Phone/Video with Pt.: 13 Assessment and Plan Assessment & Plan (1) Panic anxiety syndrome: Code(s): F41.0 - Panic disorder [episodic paroxysmal anxiety] (2) Major depression, recurrent: Code(s): F33.9 - Major depressive disorder, recurrent, unspecified Qualifiers: Active/Remission status: currently active Major depression episode severity: moderate Qualified Code(s): F33.1 - Major depressive disorder, recurrent, moderate Plan Patient is 37-year-old female this is a telemedicine follow-up on anxiety Patient is not taking Lexapro 5 mg, I did increase the dose to 10 last visit but patient is more comfortable with 5 mg and she is feeling better. She continued to work, patient says that if she has bad day then she will use her FMLA and stay home. But for the most part she is feeling better and is working continue sleepy. She is seeing a therapist and do not want to see a psychiatrist. Follow-up 3 months Coding Level of Care Code Tele Est Pt Level 3 (44815) Diagnoses Panic anxiety syndrome F41.0 Moderate episode of recurrent major depressive disorder F33.1 Active/Remission status: currently active Major depression episode severity: moderate
== END 2023-03-03 12:08 | disposition home or self-care (01) ==
PROVIDERS: PCP Internal Medicine; Visit Provider Internal Medicine
DX: F41.0 Panic disorder [episodic paroxysmal anxiety] (principal); F33.1 Major depressive disorder, recurrent, moderate
CPT/HCPCS: 99213

== ENCOUNTER 2023-07-07 08:27 | Outpatient (AMB) | payer OTHER, SELFPAY ==
--- NOTE | 2023-07-07 08:36 | MHC.PC.OV ---
Intake Visit Reasons: medication follow up/[phone] Allergies No Known Allergies [No Known Allergies*] Allergy (Verified 07/07/23 08:36) Environmental Allergy (Unknown, Uncoded 02/09/23 13:17) Unknown Medication List - Last Reconciled 07/07/23 by Bakari Cadena MD bisacodyl (Dulcolax (bisacodyl)) 20 mg (4 x 5 mg) PO ONCE 1 day escitalopram oxalate 5 mg PO DAILY 90 days levothyroxine 50 mcg PO DAILY lorazepam 0.5 mg PO DAILY PRN 90 days polyethylene glycol 3350 (Miralax) 238 grams PO ONCE 1 day Tobacco use date assessed: 07/07/23 Dental Screening Dental Screen Date: 07/07/23 Did you have a dental visit in the last 12 months?: Yes Did you have a dental problem in the last 6 months where you did not have access to dental care?: No Was dental information given to patient?: Patient has dentist HPI medication follow up/[phone] HPI Details Patient is 38-year-old female this is a telemedicine video follow-up on her anxiety Since she has started Lexapro 5 mg patient is feeling better and has been able to go to work regularly Does have a FMLA paperwork just in case is Which is expiring in July, patient is feeling little bit anxious about that She says that she is also getting in February and that is also bringing on some anxiety She would like to extend the FMLA paperwork just in case We will book another appointment when patient have a paperwork available And she is also due for physical examination we will book the appointment in 3 months Meanwhile she is to continue Lexapro 5 mg, patient is no longer taking lorazepam [facility] Medical History Hypothyroid Depression Social History Housing: House Patient Tobacco Use Status: Never used Tobacco e-Cigarette/Vaping Use: Never Used Second Hand Smoke Exposure: No service: No Current occupational status: employed Current occupation: [employer] Current occupational exposures/hazards: No Cognitive needs: No Hearing needs: No Vision needs: No Questionnaire Thrive Questionnaire Date Thrive assessed: 07/07/21 AUDIT C Alcohol Use Questionnaire (AUDIT-C) 1. How often do you have a drink containing alcohol?: Never 3. How often do you have six or more drinks on one occasion?: Never Total Score: 0 Score Reviewed/Action Taken: Yes TRIXIE-7 AMB Questionnaire TRIXIE-7 Date TRIXIE - 7 assessed: 02/22/23 Source: Developed by Drs. Brandon Ashley, Anh Mccall, Roberto Butt and colleagues, with an educational angel from [employer]. Review of Systems Const Denies chills and Denies fever(s) ENT Denies epistaxis and Denies nasal discharge Card Denies chest pain Resp Denies chest congestion, Denies cough and Denies hemoptysis GI Denies diarrhea and Denies nausea Skin/Breast Denies rash Neuro Reports no additional complaints Psych Reports no additional complaints Endo Reports no additional complaints Physical exam (Primary Care) Tobacco/Smoking Status: Tobacco use Status Tobacco use date assessed 07/07/23 07/07/23 08:36 Patient Tobacco Use Status Never used Tobacco 07/07/23 08:36 e-Cigarette/Vaping Use Never Used 07/07/23 08:36 Thrive Assessment: Date of Thrive Assessment Date Thrive assessed 07/07/21 07/07/23 08:36 Telehealth Telehealth Location of provider rendering services: practice address Location of patient: address on file Patient Identification confirmed using: Name, : Yes Telehealth method: video Patient verbally consented to treatment: Yes Patient verbally consented to billing insurance company: Yes Patient informed of any privacy concerns related to visit: Yes Minutes spent on Phone/Video with Pt.: 14 Assessment and Plan Assessment & Plan (1) Panic anxiety syndrome: Code(s): F41.0 - Panic disorder [episodic paroxysmal anxiety] (2) Major depression, recurrent: Code(s): F33.9 - Major depressive disorder, recurrent, unspecified Qualifiers: Active/Remission status: currently active Major depression episode severity: moderate Qualified Code(s): F33.1 - Major depressive disorder, recurrent, moderate Plan Patient is 38-year-old female this is a telemedicine video follow-up on her anxiety Since she has started Lexapro 5 mg patient is feeling better and has been able to go to work regularly Does have a FMLA paperwork just in case is Which is expiring in July, patient is feeling little bit anxious about that She says that she is also getting in February and that is also bringing on some anxiety She would like to extend the [facility] paperwork just in case We will book another appointment when patient have a paperwork available And she is also due for physical examination we will book the appointment in 3 months Meanwhile she is to continue Lexapro 5 mg, patient is no longer taking lorazepam Thyroid management through endocrinology Medications: Discontinued lorazepam Take half a tablet in the morning with breakfast for 1 week and then half or full tablet as needed Discontinued Reason: Doctor's Order 0.5 mg PO DAILY 90 days PRN 30 tabs 0RF anxiety Coding Level of Care Code Tele Est Pt Level 3 (83347) Diagnoses Panic anxiety syndrome F41.0 Moderate episode of recurrent major depressive disorder F33.1 Active/Remission status: currently active Major depression episode severity: moderate
== END 2023-07-07 12:29 | disposition home or self-care (01) ==
LOC: HO.HMGC 08:27
PROVIDERS: PCP Internal Medicine; Visit Provider Internal Medicine
DX: F41.0 Panic disorder [episodic paroxysmal anxiety] (principal); F33.1 Major depressive disorder, recurrent, moderate
CPT/HCPCS: 99213

== ENCOUNTER 2023-07-08 07:40 | Day surgery (SDC) | payer OTHER, SELFPAY ==
--- NOTE | 2023-07-07 09:59 | P.CONAN_ITS ---
Documented by User: Cande Curran NP 07/07/23 10:01 HPI - Anesthesia Eval Consult details Narrative: 38yo F for Colonoscopy [facility] Active Problems Active Problems: All Active Problems (Updated 07/07/23 @ 08:11 by Amber Recio RN) Major depression, recurrent (Acute) Panic anxiety syndrome (Acute) Abnormal TSH (Acute) IBS (irritable bowel syndrome) (Acute) Cystitis (Acute) Suprapubic discomfort (Acute) Bacterial vaginosis (Acute) Abnormal urinalysis (Acute) Pelvic pain in female (Acute) Vaginal discharge (Acute) Bladder disorder (Acute) UTI (urinary tract infection) (Acute) Urethritis (Acute) Gastroenteritis (Acute) Anxiety, generalized (Acute) Wheezing (Acute) Post-COVID syndrome (Acute) Upper respiratory tract infection (Acute) Past Medical History Medical History Hypothyroid Depression Social History Social History Housing: House Patient Tobacco Use Status: Never used Tobacco e-Cigarette/Vaping Use: Never Used Second Hand Smoke Exposure: No Advance Directives: No Advance Directives Information Provided: Yes service: No Current occupational status: employed Current occupation: [employer] Current occupational exposures/hazards: No Cognitive needs: No Hearing needs: No Vision needs: No Meds Allergies Allergy/AdvReac Type Severity Reaction Status Date / Time No Known Allergies Allergy Verified 07/07/23 08:36 [No Known Allergies*] Environmental Allergy Unknown Unknown Uncoded 02/09/23 13:17 Home Medications Medication Instructions Recorded Confirmed Last Taken Type levothyroxine 50 mcg tablet 75 mcg PO DAILY 07/08/23 07/08/23 Unknown History Assessment and Plan Assessment Anesthesia Assessment: Chart Reviewed Documented by User: Neymar Denis MD 07/08/23 08:09 [facility] Past Medical History Medical History Hypothyroid Depression Family History Family history of problems with anesthesia: No Surgical History History of Problems with Anesthesia: No Social History Social History Housing: House Patient Tobacco Use Status: Never used Tobacco e-Cigarette/Vaping Use: Never Used Second Hand Smoke Exposure: No Advance Directives: No Advance Directives Information Provided: Yes service: No Current occupational status: employed Current occupation: [employer] Current occupational exposures/hazards: No Cognitive needs: No Hearing needs: No Vision needs: No Meds Allergies Allergy/AdvReac Type Severity Reaction Status Date / Time No Known Allergies Allergy Verified 07/07/23 08:36 [No Known Allergies*] Environmental Allergy Unknown Unknown Uncoded 02/09/23 13:17 Home Medications Medication Instructions Recorded Confirmed Last Taken Type levothyroxine 50 mcg tablet 75 mcg PO DAILY 07/08/23 07/08/23 Unknown History Exam Airway Mallampati Class: II TM Dist: >3cm Neck ROM: Full Assessment and Plan Assessment Anesthesia Assessment: Anesthesia Plan Discussed Final Anesthetic Review Family History of Problems with Anesthesia: No History of Problems with Anesthesia: No NPO: Yes ASA Class: II Final Preanesthetic Review: No Changes in Pt Med Stat, Meds/Allgs Chart Reviewed, Consent Obtained/Reviewed and Anes Risks/Benef Reviewed Patient Risk: Low Procedure Risk: Low Anesthetic Plan Anesthetic Plan: TIVA Disposition: Standard PACU
[2023-07-08 07:56] LABS: UPreg QC Valid YES; Urine Pregnancy NEGATIVE (NEGATIVE)
[2023-07-08 08:01] VITALS: BP 108/76; PULSE 95; RESP 18; TEMP 36.8; O2SAT 97; BMI 20.7
[2023-07-08] MEDS: Lactated Ringers 1,000 ML 100 ML IVCONT (08:22)
--- NOTE | 2023-07-08 08:22 | MHC.SHP ---
Pre-Procedural Eval Section A - 24 Hr Update-Section A only Date of Service: 07/08/23 The patient is an INPATIENT: No The patient has been examined within 24 hours of the surgical procedure. The History & Physical has been completed within 30 days and I have reviewed it.: No Section B - Complete if H&P > 30 days Chief Complaint: IBS, abdominal bloating, constipation, abd pain Relevant Family History (Specify if Yes): Yes Present Medications: see Short Stay Collaborative assessment Medical History: Significant History (IBS, hypothyroidism, depression) History of Previous Operations: Relevant previous surgery/procedure and date(s) ([facility]) Allergies: Allergies Allergy/AdvReac Type Severity Reaction Status Date / Time No Known Allergies Allergy Verified 07/07/23 08:36 [No Known Allergies*] Environmental Allergy Unknown Unknown Uncoded 02/09/23 13:17 Review of Systems Sugical H&P ROS: Negative: Constitution, Cardiovascular, Respiratory and Gastrointestinal Exam Surgical H&P Exam: Normal: Heart, Normal: Lungs, Normal: Extremities and Normal: Abdomen Plan Diagnosis/Plan: Unchanged I have reviewed the history and physical and performed a pertinent physical examination on my patient. No changes have occurred unless specified. Time Spent With Patient Time: Total time managing care of this patient today ____ minutes.
--- NOTE | 2023-07-08 08:55 | P.CONAN_ITS ---
FORM[facility]LY [facility], [facility] Active Problems Active Problems: All Active Problems (Updated 07/07/23 @ 08:11 by Amber Recio RN) Major depression, recurrent (Acute) Panic anxiety syndrome (Acute) Abnormal TSH (Acute) IBS (irritable bowel syndrome) (Acute) Cystitis (Acute) Suprapubic discomfort (Acute) Bacterial vaginosis (Acute) Abnormal urinalysis (Acute) Pelvic pain in female (Acute) Vaginal discharge (Acute) Bladder disorder (Acute) UTI (urinary tract infection) (Acute) Urethritis (Acute) Gastroenteritis (Acute) Anxiety, generalized (Acute) Wheezing (Acute) Post-COVID syndrome (Acute) Upper respiratory tract infection (Acute) Past Medical History Medical History Hypothyroid Depression Family History Family history of problems with anesthesia: No Surgical History History of Problems with Anesthesia: No Social History Social History Housing: House Patient Tobacco Use Status: Never used Tobacco e-Cigarette/Vaping Use: Never Used Second Hand Smoke Exposure: No Advance Directives: No Advance Directives Information Provided: Yes service: No Current occupational status: employed Current occupation: [employer] Current occupational exposures/hazards: No Cognitive needs: No Hearing needs: No Vision needs: No Meds Allergies Allergy/AdvReac Type Severity Reaction Status Date / Time No Known Allergies Allergy Verified 07/07/23 08:36 [No Known Allergies*] Environmental Allergy Unknown Unknown Uncoded 02/09/23 13:17 Active Medications: Current Medications Lactated Ringer's (Lr) 1,000 mls @ 100 mls/hr IVCONT .Q10H ANTON Last Admin: 07/08/23 08:22 Dose: 100 mls/hr Home Medications Medication Instructions Recorded Confirmed Last Taken Type levothyroxine 50 mcg tablet 75 mcg PO DAILY 07/08/23 07/08/23 Unknown History Exam Height,Weight and Vital Signs: Height 5 ft Weight 48.081 kg Last Vital Signs Temp 98.2 F 07/08/23 08:01 Pulse 95 07/08/23 08:01 Resp 18 07/08/23 08:01 BP 108/76 07/08/23 08:01 Pulse Ox 97 07/08/23 08:01 O2 Del Method Room Air 07/08/23 08:01 Pertinent Lab Results Pertinent Lab Results: Laboratory Tests 07/08/23 07:45 Urine Test NEGATIVE Airway Mallampati Class: II TM Dist: >3cm Neck ROM: Full Assessment and Plan Assessment Anesthesia Assessment: Anesthesia Plan Discussed and Chart Reviewed Final Anesthetic Review Family History of Problems with Anesthesia: No History of Problems with Anesthesia: No NPO: Yes ASA Class: II Final Preanesthetic Review: No Changes in Pt Med Stat, Meds/Allgs Chart Revi ewed, Consent Obtained/Reviewed and Anes Risks/Benef Reviewed Patient Risk: Low Procedure Risk: Low Anesthetic Plan Anesthetic Plan: TIVA Disposition: Standard PACU
--- NOTE | 2023-07-08 08:58 | P.OP_ITS ---
Operative Note Operative Note Date of Service: 07/08/23 Narrative: COLONOSCOPY TILL CECUM WITH BIOPSIES Pre-op diagnosis: Colon cancer screening, family history of colon cancer (Mom at age 42 yrs with colon cancer), lower abdominal pain, IBS, abdominal bloating Post-op diagnosis:? Diverticulosis, hemorrhoids Endoscopist:? Garth Arrington MD Anesthesia:?MAC Consent: Indications for the procedure and potential complications of bleeding, perforation, reaction to medications and missed diagnosis were discussed with the patient and informed consent was obtained. Instrument: Olympus PCF H 190 L variable stiffness pediatric colonoscope Monitoring: Vital signs and clinical assessment, intermittent blood pressure monitoring, continuous EKG monitoring, Pulse oximetry and Carbon Dioxide monitoring were done throughout the procedure. Please see anesthesia flowsheet. Colon withdrawl time was 16 minutes. Procedure: The patient was placed in the left lateral decubitis position and pre-procedure medications were administered. After a digital rectal examination of the ano-rectum, the video colonoscope was inserted into the rectum and advanced through the colon to the cecum. The colonoscope was slowly withdrawn in a retrograde panoramic fashion and the colon mucosa was carefully examined including a retroflexed view of the rectum. Findings and interventions are described below. Procedure Difficulty: Without difficulty Findings: Terminal Ileum: Distal 5 cms was examined and appeared normal Cecum: Normal Ascending Colon: Normal Transverse Colon: Normal Descending Colon: Normal Sigmoid Colon: Moderate diverticulosis Rectum: Normal Ano-rectum: Moderate internal hemorrhoids Colon preparation: Good after some irrigation [place] Bowel Preparation Scale Right colon; 3 Transverse colon: 3 Left colon; 3 (0 = Unprepared colon segment with mucosa not seen due to solid stool that cannot be cleared. 1 = Portion of mucosa of the colon segment seen, but other areas of the colon segment not well seen due to staining, residual stool and/or opaque liquid. 2 = Minor amount of residual staining, small fragments of stool and/or opaque liquid, but mucosa of colon segment seen well. 3 = Entire mucosa of colon segment seen well with no residual staining, small fragments of stool or opaque liquid) Impression and Post Procedure Diagnosis: Colonoscopy Findings: No polyps were detected. Random biopsies were obtained from right and left colon to check for microscopic colitis Moderate diverticulosis seen in the sigmoid colon Small hemorrhoids on retroflexed exam. Plan: Await pathology results Patient has an appointment on 07/22/23 in the GI Clinic with Micaela,Leigha D, [employer]- [employer]. Repeat Colonoscopy in 5 years due to positive family history of colon cancer.. Above findings were reviewed with the patient and diverticulosis handout was given in the discharge area.
[2023-07-08 08:59] VITALS: BP 88/50; PULSE 68; RESP 16; TEMP 36.2; O2SAT 99
[2023-07-08 09:14] VITALS: BP 98/65; PULSE 78; RESP 20; TEMP 36.8; O2SAT 100
[2023-07-08 09:29] VITALS: BP 98/64; PULSE 73; RESP 18; TEMP 36.9; O2SAT 100
== END 2023-07-08 09:45 | disposition home or self-care (01) ==
PROVIDERS: Nurse Practitioner; PCP Internal Medicine; Visit Provider Internal Medicine Gastroenterology
PROC: 0DJD8ZZ Inspection of Lower Intestinal Tract, Via Natural or Artificial Opening Endoscopic (ICD-10-PCS; CPT 45378; principal; 2023-07-08 12:50)
DX: Z12.11 Encounter for screening for malignant neoplasm of colon (principal); Z80.0 Family history of malignant neoplasm of digestive organs; R10.30 Lower abdominal pain, unspecified; K58.9 Irritable bowel syndrome, unspecified; K59.00 Constipation, unspecified; R14.0 Abdominal distension (gaseous); K57.30 Diverticulosis of large intestine without perforation or abscess without bleeding; K64.8 Other hemorrhoids; E03.9 Hypothyroidism, unspecified; F33.9 Major depressive disorder, recurrent, unspecified; J06.9 Acute upper respiratory infection, unspecified; U09.9 Post COVID-19 condition, unspecified; Z79.899 Other long term (current) drug therapy
CPT/HCPCS: 45380; 81025; 88305; J2704

== ENCOUNTER → 2023-07-08 07:40 | Outpatient (BNV) | payer OTHER, SELFPAY | PROVIDERS: PCP Internal Medicine; Visit Provider Internal Medicine Gastroenterology | DX: Z12.11 Encounter for screening for malignant neoplasm of colon (principal); K57.90 Diverticulosis of intestine, part unspecified, without perforation or abscess without bleeding; K64.8 Other hemorrhoids; Z80.0 Family history of malignant neoplasm of digestive organs | CPT/HCPCS: 45378 ==

== ENCOUNTER 2023-07-19 09:22 | Outpatient (AMB) | payer OTHER, SELFPAY ==
--- NOTE | 2023-07-19 10:23 | AM.OFFWIN_ITS ---
Intake Vital Signs 07/19/23 10:34 Weight 106 lb BP 112/70 Blood Pressure Location Lt brachial Position Sitting Pulse 75 Pulse Source Pulse Oximeter Temp 97.3 F Temp Source Temporal Artery Scan Pulse Oximetry (%) 96 Oxygen Delivery Method Room Air Intake Visit Reasons: EST/sore throat([phone]) Intake Note: pt is here today for sore throat started yesterday Patient Tobacco Use Status: Never used Tobacco Allergies No Known Allergies [No Known Allergies*] Allergy (Verified 07/19/23 10:23) Environmental Allergy (Unknown, Uncoded 07/15/23 07:30) Unknown Do you need a note to return to daycare/school/sports/work: Yes HPI HPI Comments History of Present Illness Details Patient is a 38-year-old female in today for sick visit. She states that for the past days she has developed symptoms of sore throat, headache, nasal congestion. She has not used any medicine for relief. She states that her fiance had COVID 2 weeks prior. Denies chest pain, shortness a breath, nausea, vomiting, diarrhea, numbness. In office strep was negative. Will obtain upper respiratory infective swab. [facility] Medical History Hypothyroid Depression Surgical History H/O LEEP Social History Housing: House Patient Tobacco Use Status: Never used Tobacco e-Cigarette/Vaping Use: Never Used Second Hand Smoke Exposure: No service: No Current occupational status: employed Current occupation: [employer] Current occupational exposures/hazards: No Cognitive needs: No Hearing needs: No Vision needs: No Review of Systems Const Details: Constitutional : No Weight loss, No Fever, No Chills, No Fatigue, No Malaise ENT/Mouth : Admits sore throat, Admits nasal congestion. Eyes: No Eye Pain, No Swelling, No Redness Cardiovascular : No Chest Pain, No SOB, No Dyspnea on Exertion, No Orthopnea, No Edema, No Palpitations Respiratory : No Cough, No Sputum, No Wheezing Gastrointestinal : No Nausea, No Vomiting, No Diarrhea, No Constipation, No abdominal Pain, No Hematochezia, No Melena Genitourinary : No Dysuria, No Urinary Frequency, No Hematuria, Musculoskeletal : No joint pain, No Myalgias, No Joint Swelling Skin : No Skin Lesions, No rash Neuro : No Weakness, No Numbness, No Dizziness, No Headache Psych : No Anxiety/Panic, No Depression Heme/Lymph: No Bruising, No Bleeding,No Lymphadenopathy Endocrine : No Polyuria, No Polydipsia All other systems reviewed and are negative Physical Exam Vital Signs: Last Vital Signs Temp 97.3 F 07/19/23 10:34 Pulse 75 07/19/23 10:34 BP 112/70 07/19/23 10:34 Pulse Ox 96 07/19/23 10:34 Oxygen Delivery Method Room Air 07/19/23 10:34 Vital signs reviewed stable Const Other: Appearance: Alert.? Oriented X3.? No acute distress.? Head: Normocephalic, atraumatic. Eyes: Pupils equal, round and reactive to light.? ENT: Pharynx Cobblestoned. TM intact and pearly roberts. + clear nasal discharge. ? Neck: Normal inspection.? Neck supple.? CVS: Normal heart rate and rhythm.? Pulses normal.? Respiratory: No respiratory distress.? Breath sounds normal.? Neuro: Oriented X 3.? No motor deficit.? No sensory deficit. CN 2-12 intact Results AMB Rapid Strep AMB Rapid Strep Negative Last Edit by Renea Villagomez on 07/19/23 10:49 Assessment & Plan Assessment & Plan (1) Upper respiratory tract infection: Comment: Patient had in office URI swab. Will send over separate call lozenges for or sore throat. Patient has been instructed this likely viral illness, she can use [id number] medications for symptom relief. Code(s): J06.9 - Acute upper respiratory infection, unspecified Qualifiers: URI type: unspecified URI Qualified Code(s): J06.9 - Acute upper respiratory infection, unspecified Plan: Take your medications as prescribed. If you were prescribed antibiotics today, it is important that you take your medication to their entirety, do not skip any doses, do not finish them early. Follow-up with your primary care provider this week. Return to the emergency department with new or worsening symptoms. Such as fevers, chills, chest pain, shortness of breath, nausea, vomiting, dizziness, headache, vision changes, lethargy In case of emergency call 911 Plan Follow-up with PCP Orders: Orders SARS-CoV2/FLU/RSV Today J06.9 - Acute upper respiratory infection, unspecified Medications: New benzocaine-menthol 15-3.6 mg (Cepacol Sore Throat (benzocaine-menthol)) 1 neil mucous membrane Q2-4H PRN 16 ea 0RF sore throat Coding Level of Care Code Est Pt Level 3 (65606) Diagnoses Upper respiratory tract infection, unspecified type J06.9 URI type: unspecified URI Time Spent (min) 26
[2023-07-19 10:34] VITALS: BP 112/70; PULSE 75; TEMP 36.3; O2SAT 96
== END 2023-07-19 11:46 | disposition home or self-care (01) ==
PROVIDERS: PCP Internal Medicine; Visit Provider Nurse Practitioner Primary Care
DX: J06.9 Acute upper respiratory infection, unspecified (principal); J02.9 Acute pharyngitis, unspecified
CPT/HCPCS: 87880; 99213

== ENCOUNTER 2023-07-19 14:04 | Outpatient (REF) | payer OTHER, SELFPAY ==
[2023-07-19 15:11] LABS: Influenza A PCR NEGATIVE (Negative); Influenza B PCR NEGATIVE (Negative); Resp Syncy Virus RNA Qual PCR NEGATIVE (Negative); SARS COV2 PCR INHOUSE NEGATIVE (Negative)
== END 2023-07-19 14:05 | disposition home or self-care (01) ==
LOC: HO.HMGCLNP 14:04
PROVIDERS: Visit Provider Nurse Practitioner Primary Care
DX: Z11.52 Encounter for screening for COVID-19 (principal); Z20.822 Contact with and (suspected) exposure to COVID-19; J06.9 Acute upper respiratory infection, unspecified
CPT/HCPCS: 0241U

== ENCOUNTER 2023-11-11 08:31 | Outpatient (AMB) | payer OTHER, SELFPAY ==
[2023-11-11 08:32] VITALS: BP 102/62; PULSE 86; O2SAT 98; BMI 20.9
--- NOTE | 2023-11-11 08:32 | A.OFFPC_ITS ---
Vital Signs 11/11/23 08:32 Height 5 ft Weight 107 lb 4 oz BMI 20.9 BP 102/62 Blood Pressure Location Lt brachial Position Sitting Pulse 86 Pulse Source Pulse Oximeter Pulse Oximetry (%) 98 Oxygen Delivery Method Room Air Intake Visit Reasons: PE Vocational Ed Instructor Required: No Accompanied by: Self / Same As Patient Allergies No Known Allergies [No Known Allergies*] Allergy (Verified 11/11/23 08:32) Environmental Allergy (Unknown, Uncoded 07/15/23 07:30) Unknown Medication List - Last Reconciled 11/11/23 by Bakari Cadena MD escitalopram oxalate 5 mg PO DAILY 90 days levothyroxine 75 mcg PO DAILY Tobacco use date assessed: 07/07/23 Dental Screening Dental Screen Date: 07/07/23 HPI PE HPI Details Patient is 38-year-old female came in today for physical examination She is seeing endocrinology and levothyroxine is through their office she is taking 75 mcg daily except Tuesday she takes 2 tablets ID stable with Lexapro 5 mg Patient is requesting few tablets of lorazepam just in case OBGYN visit was October of 2015 [facility] she had Pap smear Colonoscopy was done this year at [facility], which showed diverticulosis. Patient also has seen Dermatology for acne Follow-up six-month telemedicine for anxiety One year physical exam Tetanus vaccine was given today [facility] Medical History Hypothyroid Depression Surgical History H/O LEEP Social History Housing: House Patient Tobacco Use Status: Never used Tobacco e-Cigarette/Vaping Use: Never Used Second Hand Smoke Exposure: No service: No Current occupational status: employed Current occupation: [employer] Current occupational exposures/hazards: No Cognitive needs: No Hearing needs: No Vision needs: No Questionnaire PHQ-9 Over the last 2 weeks, how often have you been bothered by any of the following problems? 1. Little interest or pleasure in doing things: not at all 2. Feeling down, depressed, or hopeless: several days 3. Trouble falling or staying asleep, or sleeping too much: several days 4. Feeling tired or having little energy: several days 5. Poor appetite or overeating: not at all 6. Feeling bad about yourself - or that you are a failure or have let yourself or your family down: not at all 7. Trouble concentrating on things, such as reading the newspaper or watching television: not at all 8. Moving or speaking so slowly that other people could have noticed. Or the opposite - being so fidgety or restless that you have been moving around a lot more than usual: not at all 9. Thoughts that you would be better off or of hurting yourself in some way: not at all Total score: 3 Depression Screening Interpretation: Negative Depression Screening Done: Yes 23613 - PHQ-9 Billing: Yes Source: Developed by Drs. Brandon Ashley, Anh Mccall, Roberto Butt and colleagues, with an educational angel from [employer]. Thrive Questionnaire Date Thrive assessed: 11/11/23 I am a: Patient What is your living situation today?: I have a steady place to live Within the past 12 months, did the food you bought not last and you didn't have the money to get more?: Never true Within the past 12 months, did you worry whether your food would run out before you got money to buy more?: Never true Do you have trouble paying for medicines?: No Do you have trouble getting transportation to medical appointments?: No Do you have trouble paying your heating and electricity bill?: No Do you have trouble taking care of your child, family member or friend?: No Do you have trouble with day-to-day activities such as bathing, preparing meals, shopping, managing finances, etc.?: No Are you currently unemployed and looking for a job?: No Are you interested in more education?: No Please select the resources that you would like help with: None Currently or been in a relationship where the following occur: No concerns reported THRIVE Score: 0 AUDIT C Alcohol Use Questionnaire (AUDIT-C) 1. How often do you have a drink containing alcohol?: Never 3. How often do you have six or more drinks on one occasion?: Never Total Score: 0 Score Reviewed/Action Taken: Yes TRIXIE-7 AMB Questionnaire TRIXIE-7 Date TRIXIE - 7 assessed: 11/11/23 Source: Developed by Drs. Brandon LAnh Cruz, Roberto Butt and colleagues, with an educational angel from [employer]. Review of Systems Const Denies chills, Denies fever(s) and Denies headache(s) Eyes Denies blurry vision ENT Denies headache(s), Denies nasal discharge, Denies nasal obstruction, Denies odynophagia and Denies sinus pain Card Denies chest pain at rest and Denies chest pain with activity Resp Denies cough and Denies hemoptysis GI Denies diarrhea, Denies odynophagia, Denies vomiting and Denies hematemesis Reports as per HPI Musc Denies abnormal gait Skin/Breast Reports as per HPI Neuro Denies Neuro-related abnormal movements, Denies Abnormal speech present, Denies abnormal gait, Denies headache(s) and Denies Sensory deficit (Neuro) Psych Denies mood swings and Denies paranoia Endo Reports as per HPI Leighton/Lymph Reports as per HPI Aller/Immun Reports as per HPI Physical exam (Primary Care) Vital Signs: Last Vital Signs Pulse 86 11/11/23 08:32 BP 102/62 11/11/23 08:32 Pulse Ox 98 11/11/23 08:32 Oxygen Delivery Method Room Air 11/11/23 08:32 BMI result Body Mass Index 20.9 Tobacco/Smoking Status: Tobacco use Status Tobacco use date assessed 07/07/23 11/11/23 08:34 Patient Tobacco Use Status Never used Tobacco 11/11/23 08:34 e-Cigarette/Vaping Use Never Used 11/11/23 08:34 Depression Screening Interpretation: Negative Thrive Assessment: Date of Thrive Assessment Date Thrive assessed 11/11/23 11/11/23 08:34 Currently or been in a relationship where the following occur: No concerns reported Const General: cooperative, comfortable and no acute distress Orientation/consciousness: patient oriented x3 HENMT Head: Yes normocephalic and Yes atraumatic Eyes General: appearance normal, both eyes and all related structures Pupils: Equal, round and reactive pupils present EOM: EOMs intact bilaterally Neck Neck: Yes supple and No lymphadenopathy Thyroid: Thyroid normal Lymphatic: no lymphadenopathy noted Resp Effort & Inspection: normal respiratory effort and able to speak in complete sentences Auscultation: clear to auscultation bilaterally Cardio Heart sounds: S1 normal heart sound present and S2 normal heart sound present GI Palpation (GI): Soft to palpation and nontender Auscultation: normal bowel sounds General: Yes no CVA tenderness Back/Spine/Pelvis Back: no CVA tenderness Skin General skin exam: elasticity normal and turgor normal Neuro General: patient oriented x3 and gait normal Cranial nerves: Yes Equal, round and reactive pupils present Speech: No Abnormal speech present Sensory Exam: No Sensory deficit (Neuro) Coordination: tandem gait normal and Romberg test negative Extrem General: Yes normal exam except as noted and No edema Immunizations Boostrix Tdap 2.5 Lf unit-8 mcg-5 Lf/0.5 mL intramuscular syringe Performing Provider: Bakari Cadena MD Performing Location: [facility] Administered by: BRUNO Mcdonnell on 11/11/23 09:03 Dose Route Admin Location Dispensed Lot Number Expiration Date NDC Ultrasound Coordinator 0.5 mL IM Right Deltoid 0.5 mL [id number] 11/15/25 [id number] Data Stream [employer] VIS Given Date VIS Provided VIS Publication Date 11/11/23 Single Vaccine 20 Eligibility Eligibility Date Funding Source Not VFC Eligible 11/11/23 Private Assessment and Plan Assessment & Plan (1) Encounter for general adult medical examination with abnormal findings: Code(s): Z00.01 - Encounter for general adult medical examination with abnormal findings (2) Major depression, recurrent: Code(s): F33.9 - Major depressive disorder, recurrent, unspecified Qualifiers: Active/Remission status: currently active Major depression episode severity: moderate Qualified Code(s): F33.1 - Major depressive disorder, recurrent, moderate (3) Panic anxiety syndrome: Code(s): F41.0 - Panic disorder [episodic paroxysmal anxiety] (4) IBS (irritable bowel syndrome): Code(s): K58.9 - Irritable bowel syndrome without diarrhea Qualifiers: Irritable bowel syndrome type: with constipation Qualified Code(s): K58.1 - Irritable bowel syndrome with constipation Plan Patient is 38-year-old female came in today for physical examination She is seeing endocrinology and levothyroxine is through their office she is taking 75 mcg daily except Tuesday she takes 2 tablets ID stable with Lexapro 5 mg Patient is requesting few tablets of lorazepam just in case OBGYN visit was October of 2015 [facility] she had Pap smear Colonoscopy was done this year at [facility], which showed diverticulosis. Patient also has seen Dermatology for acne Follow-up six-month telemedicine for anxiety One year physical exam Tetanus vaccine was given today Patient also wanted FMLA paper work filled If she feels overwhelmed and have a panic attack she can take a day off 2 times a month. Paperwork filled Orders: Orders Complete Blood Count Auto Diff Today F33.1 - Major depressive disorder, recurrent, moderate, F41.0 - Panic disorder [episodic paroxysmal anxiety], K58.1 - Irritable bowel syndrome with constipation, Z00.01 - Encounter for general adult medical examination with abnormal findings Comprehensive Lindsay. Panel Fast Today F33.1 - Major depressive disorder, recurrent, moderate, F41.0 - Panic disorder [episodic paroxysmal anxiety], K58.1 - Irritable bowel syndrome with constipation, Z00.01 - Encounter for general adult medical examination with abnormal findings Lipid Panel Today F33.1 - Major depressive disorder, recurrent, moderate, F41.0 - Panic disorder [episodic paroxysmal anxiety], K58.1 - Irritable bowel syndrome with constipation, Z00.01 - Encounter for general adult medical examination with abnormal findings Vitamin D 25-OH (D2 and D3) Today F33.1 - Major depressive disorder, recurrent, moderate, F41.0 - Panic disorder [episodic paroxysmal anxiety], K58.1 - Irritable bowel syndrome with constipation, Z00.01 - Encounter for general adult medical examination with abnormal findings TDaP Immunization Today Z23 - Encounter for immunization Coding Level of Care Code Est Pt Level 3 (26025) Est Pt Prev Care 18-39y(54370) Diagnoses Encounter for general adult medical examination with abnormal findings Z00.01 Moderate episode of recurrent major depressive disorder F33.1 Active/Remission status: currently active Major depression episode severity: moderate Panic anxiety syndrome F41.0 Irritable bowel syndrome with constipation K58.1 Irritable bowel syndrome type: with constipation
== END 2023-11-11 09:07 | disposition home or self-care (01) ==
LOC: HO.HMGC 08:31
PROVIDERS: PCP Internal Medicine; Visit Provider Internal Medicine
DX: Z00.01 Encounter for general adult medical examination with abnormal findings (principal); F33.1 Major depressive disorder, recurrent, moderate; F41.0 Panic disorder [episodic paroxysmal anxiety]; Z23 Encounter for immunization; K58.1 Irritable bowel syndrome with constipation
CPT/HCPCS: 90471; 90715; 99213; 99395

== ENCOUNTER 2023-12-15 08:56 | Outpatient (AMB) | payer OTHER, SELFPAY ==
--- NOTE | 2023-12-15 08:57 | MHC.PC.OV ---
Intake Visit Reasons: acne= I phone Allergies No Known Allergies [No Known Allergies*] Allergy (Verified 12/15/23 08:57) Environmental Allergy (Unknown, Uncoded 07/15/23 07:30) Unknown Medication List - Last Reconciled 12/15/23 by Bakari Cadena MD escitalopram oxalate 5 mg PO DAILY 90 days levothyroxine 75 mcg PO DAILY sulfamethoxazole-trimethoprim 400-80 mg (Bactrim) 1 tab PO DAILY Tobacco use date assessed: 12/15/23 Dental Screening Dental Screen Date: 12/15/23 Did you have a dental visit in the last 12 months?: Yes Did you have a dental problem in the last 6 months where you did not have access to dental care?: No Was dental information given to patient?: Patient has dentist HPI acne= I phone HPI Details Patient is 38 year?old female, this is telemedicine video conference to talk about acne Patient said that few days ago she was prescribed bactrim by her OBGYN as she had developed urinary tract infection. Patient noticed that her acne cleared up after taking the antibiotic. Patient said that before her menstrual cycle, She started to have acne, and is requesting a script for bactrim. Side effect of medication reviewed with the patient. I would recommend that she takes doxycycline if she has to take antibiotic for acne, patients say that she does not do well digging doxycycline due to side effects. I have placed a referral for her to be evaluated by Dermatology Meanwhile I have sent single strength Bactrim,14 tablets ,patient may take One A Day for three or five days as needed to control the acne before her master cycle. [facility] Medical History Hypothyroid Depression Surgical History H/O LEEP Social History Housing: House Patient Tobacco Use Status: Never used Tobacco e-Cigarette/Vaping Use: Never Used Second Hand Smoke Exposure: No service: No Current occupational status: employed Current occupation: [employer] Current occupational exposures/hazards: No Cognitive needs: No Hearing needs: No Vision needs: No Questionnaire Thrive Questionnaire Date Thrive assessed: 11/11/23 AUDIT C Alcohol Use Questionnaire (AUDIT-C) 1. How often do you have a drink containing alcohol?: Never 3. How often do you have six or more drinks on one occasion?: Never Total Score: 0 Score Reviewed/Action Taken: Yes TRIXIE-7 AMB Questionnaire TRIXIE-7 Date TRIXIE - 7 assessed: 11/11/23 Source: Developed by Drs. Brandon Ashley, Anh Mccall, Roberto Butt and colleagues, with an educational angel from [employer]. Review of Systems Const Denies chills and Denies fever(s) ENT Denies epistaxis and Denies nasal discharge Card Denies chest pain Resp Denies chest congestion, Denies cough and Denies hemoptysis GI Denies diarrhea and Denies nausea Skin/Breast Denies rash Neuro Reports no additional complaints Psych Reports no additional complaints Endo Reports no additional complaints Physical exam (Primary Care) Tobacco/Smoking Status: Tobacco use Status Tobacco use date assessed 12/15/23 12/15/23 08:57 Patient Tobacco Use Status Never used Tobacco 12/15/23 08:57 e-Cigarette/Vaping Use Never Used 12/15/23 08:57 Thrive Assessment: Date of Thrive Assessment Date Thrive assessed 11/11/23 12/15/23 08:57 Telehealth Telehealth Telehealth Platform: [employer] Location of provider rendering services: practice address Location of patient: address on file Patient Identification confirmed using: Name, : Yes Telehealth method: video Patient verbally consented to treatment: Yes Patient verbally consented to billing insurance company: Yes Patient informed of any privacy concerns related to visit: Yes Minutes spent on Phone/Video with Pt.: 13 Assessment and Plan Assessment & Plan (1) Acne: Code(s): L70.9 - Acne, unspecified Qualifiers: Acne type: acne vulgaris Qualified Code(s): L70.0 - Acne vulgaris Plan Patient is 38 year?old female, this is telemedicine video conference to talk about acne Patient said that few days ago she was prescribed bactrim by her OBGYN as she had developed urinary tract infection. Patient noticed that her acne cleared up after taking the antibiotic. Patient said that before her menstrual cycle, She started to have acne, and is requesting a script for bactrim. Side effect of medication reviewed with the patient. I would recommend that she takes doxycycline if she has to take antibiotic for acne, patients say that she does not do well digging doxycycline due to side effects. I have placed a referral for her to be evaluated by Dermatology Meanwhile I have sent single strength Bactrim,14 tablets ,patient may take One A Day for three or five days as needed to control the acne before her master cycle. Orders: Referrals Dermatology Referral L70.9 - Acne, unspecified Medications: New sulfamethoxazole-trimethoprim 400-80 mg (Bactrim) 1 tab PO DAILY 14 tabs 0RF acne Coding Level of Care Code Tele Est Pt Level 3 (00870) Diagnoses Acne vulgaris L70.0 Acne type: acne vulgaris
== END 2023-12-15 09:44 | disposition home or self-care (01) ==
LOC: HO.HMGC 08:56
PROVIDERS: PCP Internal Medicine; Visit Provider Internal Medicine
DX: L70.0 Acne vulgaris (principal)
CPT/HCPCS: 99213

== ENCOUNTER 2024-04-19 08:54 | Outpatient (AMB) | payer OTHER, SELFPAY ==
--- NOTE | 2024-04-19 08:38 | A.OFFPC_ITS ---
Intake Visit Reasons: 6M / Allergies No Known Allergies [No Known Allergies*] Allergy (Verified 04/19/24 08:38) Environmental Allergy (Unknown, Uncoded 04/19/24 08:38) Unknown Medication List - Last Reconciled 04/19/24 by Bakari Cadena MD escitalopram oxalate 10 mg PO DAILY levothyroxine 75 mcg PO DAILY lorazepam 0.5 mg PO DAILY PRN sulfamethoxazole-trimethoprim 400-80 mg (Bactrim) 1 tab PO DAILY Tobacco use date assessed: 04/19/24 Dental Screening Dental Screen Date: 04/19/24 Did you have a dental visit in the last 12 months?: Yes Did you have a dental problem in the last 6 months where you did not have access to dental care?: Yes Was dental information given to patient?: Patient has dentist HPI 6M / HPI Details Chief Complaint Patient reports increasing fatigue and anxiety requests a change in [place] paperwork. Assessment and Plan 38-year-old female with a history of anx iety disorder and hypothyroidism presenting with concerns of increased fatigue. Patient reports feeling very fatigued despite getting adequate sleep and maintaining an exercise routine. Potential worsening of her hypothyroid status may contribute to her symptoms. Recent medication adjustments include an increase in Escitalopram to 10 mg due to stress and anxiety. There has been no recent completion of ordered laboratory assessments, including CBC, metabolic profile, cholesterol, and vitamin D levels, which are important in evaluating her condition. 1. Hypothyroidism The patient reports needing to check her thyroid levels. A fasting thyroid panel has been added to the laboratory orders to evaluate her current thyroid function, alongside previously ordered tests from October which include CBC, metabolic profile, cholesterol, and vitamin D. Once the labs are completed, results will guide further management. 2. Anxiety Disorder The patient has increased her dose of Escitalopram to 10 mg, which has been helpful in managing her anxiety symptoms such as chest pains. The plan is to continue this dosage and provide a prescription for 10 mg tablets to avoid running out. Patient is advised against taking Lorazepam regularly, as it should be used only as needed for specific situations like flying. Problem List - Anxiety disorder - Hypothyroidism Patient Instructions - Complete fasting lab tests including C BC, metabolic profile, thyroid panel, cholesterol, and vitamin D. - Take Escitalopram 10 mg as prescribed, and a new prescription for 10 mg tablets will be provided. - Use Lorazepam only as needed for speci fic situations. - Ensure laboratory personnel are inform ed to perform both Raquel's and the current thyroid lab orders. - Return with [facility] paperwork for updates if needed. - Report any further increase in fatigue or new symptoms promptly. [facility] Medical History Hypothyroid Depression Surgical History H/O LEEP Social History Housing: House Patient Tobacco Use Status: Never used Tobacco e-Cigarette/Vaping Use: Never Used Second Hand Smoke Exposure: No service: No Current occupational status: employed Current occupation: [employer] Current occupational exposures/hazards: No Cognitive needs: No Hearing needs: No Vision needs: No Questionnaire Thrive Questionnaire Date Thrive assessed: 11/11/23 TRIXIE-7 AMB Questionnaire TRIXIE-7 Date TRIXIE - 7 assessed: 11/11/23 Source: Developed by Drs. Brandon Ashley, Anh Mccall, Roberto Butt and colleagues, with an educational angel from [employer]. Review of Systems Const Denies chills and Denies fever(s) ENT Denies epistaxis and Denies nasal discharge Card Denies chest pain Resp Denies chest congestion, Denies cough and Denies hemoptysis GI Denies diarrhea and Denies nausea Skin/Breast Denies rash Neuro Reports no additional complaints Psych Reports no additional complaints Endo Reports no additional complaints Physical exam (Primary Care) Tobacco/Smoking Status: Tobacco use Status Tobacco use date assessed 04/19/24 04/19/24 08:39 Patient Tobacco Use Status Never used Tobacco 04/19/24 08:39 e-Cigarette/Vaping Use Never Used 04/19/24 08:39 Thrive Assessment: Date of Thrive Assessment Date Thrive assessed 11/11/23 04/19/24 08:39 Telehealth Telehealth Telehealth Platform: [facility] Location of provider rendering services: practice address Location of patient: address on file Patient Identification confirmed using: Name, : Yes Telehealth method: video Patient verbally consented to treatment: Yes Patient verbally consented to billing insurance company: Yes Patient informed of any privacy concerns related to visit: Yes Minutes spent on Phone/Video with Pt.: 14 Coding Level of Care Code Est Pt Level 3 (97287) Diagnoses Other specified hypothyroidism E03.8 Panic anxiety syndrome F41.0 Tiredness R53.83 Assessment & Plan Assessment & Plan (1) Other specified hypothyroidism: Code(s): E03.8 - Other specified hypothyroidism Category: Medical (2) Panic anxiety syndrome: Code(s): F41.0 - Panic disorder [episodic paroxysmal anxiety] Category: Medical (3) Tiredness: Code(s): R53.83 - Other fatigue Category: Medical Plan Chief Complaint Patient reports increasing fatigue and anxiety requests a change in [place] paperwork. Assessment and Plan 38-year-old female with a history of anxiety disorder and hypothyroidism presenting with concerns of increased fatigue. Patient reports feeling very fatigued despite getting adequate sleep and maintaining an exercise routine. Pot ential worsening of her hypothyroid status may contribute to her symptoms. Recent medication adjustments include an increase in Escitalopram to 10 mg due to stress and anxiety. There has been no recent completion of ordered laboratory assessments, including CBC, metabolic profile, cholesterol, and vitamin D levels, which are important in evaluating her condition. 1. Hypothyroidism The patient reports needing to check her thyroid levels. A fasting thyroid panel has been added to the laboratory orders to evaluate her current thyroid function, alongside previously ordered tests from October which include CBC, metabolic profile, cholesterol, and vitamin D. Once the labs are completed, results will guide further management. 2. Anxiety Disorder The patient has increased her dose of Escitalopram to 10 mg, which has been helpful in managing her anxiety symptoms such as chest pains. The plan is to continue this dosage and provide a prescription for 10 mg tablets to avoid running out. Patient is advised against taking Lorazepam regularly, as it should be used only as needed for specific situations like flying. Problem List - Anxiety disorder - Hypothyroidism Patient Instructions - Complete fasting lab tests including CBC, metabolic profile, thyroid panel, cholesterol, and vitamin D. - Take Escitalopram 10 mg as prescribed, and a new prescription for 10 mg tablets will be provided. - Use Lorazepam only as needed for specific situations. - Ensure laboratory personnel are informed to perform both Raquel's and the current thyroid lab orders. - Return with [facility] paperwork for updates if needed. - Report any further increase in fatigue or new symptoms promptly. Orders: Orders TSH reflex Free T4 04/19/24 E03.8 - Other specified hypothyroidism Medications: Changed From escitalopram oxalate Need a follow-up appointment 10 mg PO DAILY To escitalopram oxalate Need a follow-up appointment 10 mg PO DAILY 90 tabs 0RF
== END 2024-04-19 11:25 | disposition home or self-care (01) ==
PROVIDERS: PCP Internal Medicine; Visit Provider Internal Medicine
DX: E03.8 Other specified hypothyroidism (principal); F41.0 Panic disorder [episodic paroxysmal anxiety]; R53.83 Other fatigue

== ENCOUNTER 2024-05-02 10:52 | Outpatient (REF) | payer OTHER, SELFPAY ==
[2024-05-02 14:15] LABS: Influenza A PCR NEGATIVE (Negative); Influenza B PCR NEGATIVE (Negative); Resp Syncy Virus RNA Qual PCR NEGATIVE (Negative); SARS COV2 PCR INHOUSE NEGATIVE (Negative)
== END 2024-05-02 10:53 | disposition home or self-care (01) ==
LOC: HO.LAB 10:52
PROVIDERS: PCP Internal Medicine; Visit Provider Registered Nurse
DX: J06.9 Acute upper respiratory infection, unspecified (principal)
CPT/HCPCS: 0241U; 87880

== ENCOUNTER 2024-05-02 10:52 | Outpatient (AMB) | payer OTHER, SELFPAY ==
--- NOTE | 2024-05-02 10:59 | MHC.OFFWIV ---
Intake Vital Signs 05/02/24 11:00 Height 5 ft Weight 107 lb BMI 20.9 BP 102/64 Blood Pressure Location Rt brachial Position Sitting Pulse 72 Pulse Source Pulse Oximeter Temp 98.8 F Temp Source Oral Pulse Oximetry (%) 98 Intake Visit Reasons: EP-fatigue, stuffy nose, sore throat, headache Patient Tobacco Use Status: Never used Tobacco Allergies No Known Allergies [No Known Allergies*] Allergy (Verified 05/02/24 11:02) Environmental Allergy (Unknown, Uncoded 04/19/24 08:38) Unknown Do you need a note to return to daycare/school/sports/work: Yes HPI EP-fatigue, stuffy nose, sore throat, headache HPI Details This note is constructed using voice recognition software. While every effort has been made to ensure accuracy, centerless grinding machine adjuster errors may have been included. The patient is a 38 year old female who presents to the clinic today with stuffy nose, sore throat, headache, fatigue and slight sensation of GI upset since yesterday. She denies fever, chills, dyspnea, n/v/d. She has not tried any medication since symptom onset. [facility] Medical History Hypothyroid Depression Surgical History H/O LEEP Social History Housing: House Patient Tobacco Use Status: Never used Tobacco e-Cigarette/Vaping Use: Never Used Second Hand Smoke Exposure: No service: No Current occupational status: employed Current occupation: [employer] Current occupational exposures/hazards: No Cognitive needs: No Hearing needs: No Vision needs: No Review of Systems Const All systems reviewed & are unremarkable except as noted in HPI and below Physical Exam Vital Signs: Last Vital Signs Temp 98.8 F 05/02/24 11:00 Pulse 72 05/02/24 11:00 BP 102/64 05/02/24 11:00 Pulse Ox 98 05/02/24 11:00 BMI result Body Mass Index 20.9 Const General: cooperative, healthy appearing, comfortable and no acute distress Orientation/consciousness: patient oriented x3 Limitations: no limitations HEENT Head: Yes normal to inspection Ears: hearing grossly normal bilaterally, external ears normal and TM's normal bilaterally General nose exam: Normal external nose present, Normal nares present and No nasal discharge present Face and sinus: Yes normal facial exam and Yes sinuses nontender Mouth: Normal oral and palatal mucosa present and moist mucous membranes Throat: Yes tonsils normal, Yes uvula midline and Yes posterior oropharynx abnormal (Erythema) Eyes General: appearance normal, both eyes and all related structures Neck Neck: Yes normal visual inspection Resp Effort & Inspection: normal respiratory effort, able to speak in complete sentences, Actively coughing, no respiratory distress, not tachypneic, no tripod positioning and no use of accessory muscles Auscultation: clear to auscultation bilaterally Cardio Jugular venous distension: no JVD Rate: regular rate Rhythm: regular rhythm Heart sounds: S1 normal heart sound present, S2 normal heart sound present, no click, no gallops, no murmurs and no rubs GI Inspection: Yes normal to inspection Palpation (GI): Soft to palpation and nontender Percussion: Yes normal to percussion Auscultation: normal bowel sounds Skin General skin exam: no rashes or lesions noted, elasticity normal and turgor normal Neuro General: patient oriented x3 Extrem General: Yes normal to inspection and Yes no clubbing, cyanosis or edema Assessment & Plan Assessment & Plan (1) Upper respiratory tract infection: Code(s): J06.9 - Acute upper respiratory infection, unspecified Qualifiers: URI type: unspecified URI Qualified Code(s): J06.9 - Acute upper respiratory infection, unspecified Plan: In office rapid strep negative. Viral swab obtained to rule out Covid, Influenza, and RSV based on symptoms. Advised mask wearing while symptomatic and quarantine per current CDC guidelines. Reviewed at home support methods including hydration, humidification, vix vapor rub, sinus rinse, and otc treatment options. Discussed treatment with antiviral therapy for covid with paxlovid and with Tamiflu for influenza, including appropriate use and side effects, and need to start medication within 5 day of symptom onset, preferably within 48 hours of symptom onset. Patient wishes to decline antiviral with paxlovid therapy, but proceed with tamiflu if testing positive. Advised follow up with worsening symptoms such as dyspnea at rest, which would require emergent evaluation. Plan See above for full details and plan. Orders: Orders SARS-CoV2/FLU/RSV Today J06.9 - Acute upper respiratory infection, unspecified Coding Level of Care Code Est Pt Level 3 (49767) Diagnoses Upper respiratory tract infection, unspecified type J06.9 URI type: unspecified URI
[2024-05-02 11:00] VITALS: BP 102/64; PULSE 72; TEMP 37.1; O2SAT 98; BMI 20.9
== END 2024-05-02 11:25 | disposition home or self-care (01) ==
PROVIDERS: PCP Internal Medicine; Visit Provider Registered Nurse
DX: Z13.9 Encounter for screening, unspecified (principal); J06.9 Acute upper respiratory infection, unspecified

== ENCOUNTER 2024-05-24 08:25 | Outpatient (AMB) | payer OTHER, SELFPAY ==
--- NOTE | 2024-05-24 09:19 | MHC.PC.OV ---
Intake Visit Reasons: FMLA Allergies No Known Allergies [No Known Allergies*] Allergy (Verified 05/02/24 11:02) Environmental Allergy (Unknown, Uncoded 04/19/24 08:38) Unknown Medication List - Last Reconciled 05/25/24 by Bakari Cadena MD escitalopram oxalate 10 mg PO DAILY levothyroxine 75 mcg PO DAILY lorazepam 0.5 mg PO DAILY PRN Tobacco use date assessed: 04/19/24 Dental Screening Dental Screen Date: 04/19/24 HPI FMLA HPI Details Patient is 38-year-old female this is a telemedicine visit to fill her FMLA paperwork Patient suffers from anxiety currently taking Lexapro 10 mg which is helping her She would like to take couple of days off from work in a month if her anxiety is worse Paperwork filled starting date 12/12/2023 until 11/09/2024 PFSH Medical History Hypothyroid Depression Surgical History H/O LEEP Social History Housing: House Patient Tobacco Use Status: Never used Tobacco e-Cigarette/Vaping Use: Never Used Second Hand Smoke Exposure: No service: No Current occupational status: employed Current occupation: [employer] Current occupational exposures/hazards: No Cognitive needs: No Hearing needs: No Vision needs: No Questionnaire Thrive Questionnaire Date Thrive assessed: 11/11/23 AUDIT C Alcohol Use Questionnaire (AUDIT-C) 1. How often do you have a drink containing alcohol?: Never 3. How often do you have six or more drinks on one occasion?: Never Total Score: 0 Score Reviewed/Action Taken: Yes TRIXIE-7 AMB Questionnaire TRIXIE-7 Date TRIXIE - 7 assessed: 11/11/23 Source: Developed by Drs. Brandon Ashley, Anh Mccall, Roberto Butt and colleagues, with an educational angel from [employer]. Review of Systems Const Denies chills and Denies fever(s) ENT Denies epistaxis and Denies nasal discharge Card Denies chest pain Resp Denies chest congestion, Denies cough and Denies hemoptysis GI Denies diarrhea and Denies nausea Skin/Breast Denies rash Neuro Reports no additional complaints Psych Reports no additional complaints Endo Reports no additional complaints Physical exam (Primary Care) Tobacco/Smoking Status: Tobacco use Status Tobacco use date assessed 04/19/24 05/24/24 09:20 Patient Tobacco Use Status Never used Tobacco 05/24/24 09:20 e-Cigarette/Vaping Use Never Used 05/24/24 09:20 Thrive Assessment: Date of Thrive Assessment Date Thrive assessed 11/11/23 05/24/24 09:20 Telehealth Telehealth Telehealth Platform: VeedMe Location of provider rendering services: practice address Location of patient: address on file Patient Identification confirmed using: Name, : Yes Telehealth method: voice only Patient verbally consented to treatment: Yes Patient verbally consented to billing insurance company: Yes Patient informed of any privacy concerns related to visit: Yes Minutes spent on Phone/Video with Pt.: 12 Coding Level of Care Code Tele Est Pt Level 3 (58166) Diagnoses Panic anxiety syndrome F41.0 Assessment & Plan Assessment & Plan (1) Panic anxiety syndrome: Code(s): F41.0 - Panic disorder [episodic paroxysmal anxiety] Category: Medical Plan Patient is 38-year-old female this is a telemedicine visit to fill her FMLA paperwork Patient suffers from anxiety currently taking Lexapro 10 mg which is helping her She would like to take couple of days off from work in a month if her anxiety is worse Paperwork filled starting date 12/12/2023 until 11/09/2024
== END 2024-05-24 11:34 | disposition home or self-care (01) ==
LOC: HO.HMCC 08:25
PROVIDERS: PCP Internal Medicine; Visit Provider Internal Medicine
DX: F41.0 Panic disorder [episodic paroxysmal anxiety] (principal)

== ENCOUNTER → 2024-05-24 08:25 | Outpatient (BNVA) | payer OTHER, SELFPAY | PROVIDERS: PCP Internal Medicine; Visit Provider Internal Medicine ==

== ENCOUNTER 2024-07-25 12:34 | Outpatient (AMB) | payer OTHER, SELFPAY ==
[2024-07-25 12:44] VITALS: BP 110/72; PULSE 85; TEMP 36.9; O2SAT 98; BMI 20.9
--- NOTE | 2024-07-25 12:44 | A.OFFPC_ITS ---
Vital Signs 07/25/24 12:44 Height 5 ft Weight 107 lb 4 oz BMI 20.9 BP 110/72 Blood Pressure Location Lt brachial Position Sitting Pulse 85 Pulse Source Pulse Oximeter Temp 98.5 F Temp Source Oral Pulse Oximetry (%) 98 Oxygen Delivery Method Room Air Intake Visit Reasons: rectal bleeding Allergies No Known Allergies [No Known Allergies*] Allergy (Verified 07/25/24 12:44) Environmental Allergy (Unknown, Uncoded 04/19/24 08:38) Unknown Medication List - Last Reconciled 07/25/24 by Bakari Cadena MD escitalopram oxalate 10 mg PO DAILY levothyroxine 75 mcg PO DAILY lorazepam 0.5 mg PO DAILY PRN Tobacco use date assessed: 07/25/24 Dental Screening Dental Screen Date: 07/25/24 Did you have a dental visit in the last 12 months?: Yes Did you have a dental problem in the last 6 months where you did not have access to dental care?: No Was dental information given to patient?: Patient has dentist HPI rectal bleeding HPI Details History - The patient is a 39-year-old female pr esenting with acute diarrhea and hematochezia. - The patient experienced sharp abdomina l pain and abdominal spasms beginning the prior night. Associated symptoms included multiple bouts of diarrhea with a watery character. - Hematochezia was noted as blood mixed within the stool. This presentation included mucous elements. - No past history of hemorrhoids, consti pation, or related gastrointestinal issues was noted. - The illness onset followed consumption of a meal, suggestive of potential food-borne illness. - Evaluated for viral gastroenteritis or mild food poisoning based on the timing and symptomatology. - The patient denied any significant exp erience of nausea, with no recurrence of similar symptoms prior. Problem List - Acute Gastroenteritis - Internal Hemorrhoids Patient Instructions - Stay hydrated and consume plenty of fl uids. - Rest and follow a light, bland diet wi th small meals. - Monitor the symptoms and report contin ued bleeding or worsening symptoms. - Stay home and rest for the next two da ys before returning to work. - Follow up on Tuesday to update on condi tion progress and for further evaluation if necessary. Review of Systems - Constitutional: Reports feeling unwell and exhausted. No fever no chills - Neurological: No headaches no dizziness - Ear nose throat: No sore throat no hearing difficulty no ear pain - Cardiovascular: No syncope, no chest pain, no palpitations - Endocrine: No polyuria polydipsia no heat intolerance - Genitourinary: No dysuria , no blood in urine Physical Exam General: No acute distress, but patient reports feeling lightheaded and exhausted. HEENT: No acute findings, patient reports headache. Neck: Supple Respiratory system: Able to talk in full sentences, no audible wheeze cardiovascular: S1-S2 regular in rate and rhythm Gastrointestinal: There is 1 small external hemorrhoids on examination, abdomen is soft benign without any guarding rebound bowel sounds positive Extremities: No new findings INCIDENT ENGINEER: Alert awake oriented x3 motor sensory intact Skin: Normal turgor PFSH Medical History Hypothyroid Depression Surgical History H/O LEEP Social History Housing: House Patient Tobacco Use Status: Never used Tobacco e-Cigarette/Vaping Use: Never Used Second Hand Smoke Exposure: No service: No Current occupational status: employed Current occupation: [employer] Current occupational exposures/hazards: No Cognitive needs: No Hearing needs: No Vision needs: No Questionnaire PHQ-9 Over the last 2 weeks, how often have you been bothered by any of the following problems? 60815 - PHQ-9 Billing: Yes Source: Developed by Drs. Brandon Ashley, Anh Mccall, Roberto Butt and colleagues, with an educational angel from [employer]. Thrive Questionnaire Date Thrive assessed: 07/25/24 I am a: Patient What is your living situation today?: I have a steady place to live Within the past 12 months, did the food you bought not last and you didn't have the money to get more?: Never true Within the past 12 months, did you worry whether your food would run out before you got money to buy more?: Never true Do you have trouble paying for medicines?: No Do you have trouble getting transportation to medical appointments?: No Do you have trouble paying your heating and electricity bill?: No Do you have trouble taking care of your child, family member or friend?: No Do you have trouble with day-to-day activities such as bathing, preparing meals, shopping, managing finances, etc.?: No Are you currently unemployed and looking for a job?: No Are you interested in more education?: No Please select the resources that you would like help with: None Currently or been in a relationship where the following occur: No concerns reported THRIVE Score: 0 AUDIT C Alcohol Use Questionnaire (AUDIT-C) 1. How often do you have a drink containing alcohol?: Never 3. How often do you have six or more drinks on one occasion?: Never Total Score: 0 Score Reviewed/Action Taken: Yes TRIXIE-7 AMB Questionnaire TRIXIE-7 Date TRIXIE - 7 assessed: 07/25/24 Feeling nervous, anxious, or on edge: 0 = Not at all Not being able to stop or control worryin = Not at all Worrying too much about different things: 0 = Not at all Trouble relaxin = Not at all Being so restless that it is hard to sit still: 0 = Not at all Becoming easily annoyed or irritable: 0 = Not at all Feeling afraid as if something awful might happen: 0 = Not at all Total TRIXIE-7 score (0-4 normal; 5-9 mild; 10-14 moderate; 15-21 severe): 0 Source: Developed by Drs. Brandon Ashley, Anh Mccall, Roberto Butt and colleagues, with an educational angel from [employer]. TRIXIE-7 Assessment Billing TRIXIE-7 Assessment Tool: TRIXIE-7 Assessment 09675 Physical exam (Primary Care) Vital Signs: Last Vital Signs Pulse 85 07/25/24 12:44 BP 110/72 07/25/24 12:44 Pulse Ox 98 07/25/24 12:44 Oxygen Delivery Method Room Air 07/25/24 12:44 BMI result Body Mass Index 20.9 Tobacco/Smoking Status: Tobacco use Status Tobacco use date assessed 07/25/24 07/25/24 12:45 Patient Tobacco Use Status Never used Tobacco 07/25/24 12:45 e-Cigarette/Vaping Use Never Used 07/25/24 12:45 Thrive Assessment: Date of Thrive Assessment Date Thrive assessed 07/25/24 07/25/24 12:45 Currently or been in a relationship where the following occur: No concerns reported Coding Level of Care Code Est Pt Level 4 (21669) Diagnoses Bloody stools K92.1 External hemorrhoid K64.4 Diarrhea of presumed infectious origin R19.7 Diarrhea type: presumed infectious Abdominal cramping R10.9 Other specified hypothyroidism E03.8 Anxiety, generalized F41.1 Additional Codes TRIXIE-7 Assessment Billing - TRIXIE-7 Assessment Tool: TRIXIE-7 Assessment 07073 ([id number]) PHQ-9 - 29638 - PHQ-9 Billing: Yes ([id number]) Assessment & Plan Assessment & Plan (1) Bloody stools: Code(s): K92.1 - Melena Category: Medical (2) External hemorrhoid: Code(s): K64.4 - Residual hemorrhoidal skin tags Category: Medical (3) Diarrhea: Code(s): R19.7 - Diarrhea, unspecified Category: Medical Qualifiers: Diarrhea type: presumed infectious Qualified Code(s): R19.7 - Diarrhea, unspecified (4) Abdominal cramping: Code(s): R10.9 - Unspecified abdominal pain Category: Medical (5) Other specified hypothyroidism: Code(s): E03.8 - Other specified hypothyroidism Category: Medical (6) Anxiety, generalized: Code(s): F41.1 - Generalized anxiety disorder Category: Medical Plan History - The patient is a 39-year-old female presenting with acute diarrhea and hematochezia. - The patient experienced sharp abdominal pain and abdominal spasms beginning the prior night. Associated symptoms included multiple bouts of diarrhea with a watery character. - Hematochezia was noted as blood mixed within the stool. This presentation included mucous elements. - No past history of hemorrhoids, constipation, or related gastrointestinal issues was noted. - The illness onset followed consumption of a meal, suggestive of potential food-borne illness. - Evaluated for viral gastroenteritis or mild food poisoning based on the timing and symptomatology. - The patient denied any significant experience of nausea, with no recurrence of similar symptoms prior. Patient also suffers from anxiety disorder and is taking Lexapro with good control of symptoms Continue levothyroxine as well Problem List - Acute Gastroenteritis - Internal Hemorrhoids - generalized anxiety disorder - hypothyroidism Patient Instructions - Stay hydrated and consume plenty of fluids. - Rest and follow a light, bland diet with small meals. - Monitor the symptoms and report continued bleeding or worsening symptoms. - Stay home and rest for the next two days before returning to work. - Follow up on Tuesday to update on condition progress and for further evaluation if necessary.
== END 2024-07-25 13:13 | disposition home or self-care (01) ==
PROVIDERS: PCP Internal Medicine; Visit Provider Internal Medicine
DX: K92.1 Melena (principal); K64.4 Residual hemorrhoidal skin tags; R19.7 Diarrhea, unspecified; R10.9 Unspecified abdominal pain; E03.8 Other specified hypothyroidism; F41.1 Generalized anxiety disorder

== ENCOUNTER → 2024-07-25 12:34 | Outpatient (BNVA) | payer OTHER, SELFPAY | PROVIDERS: PCP Internal Medicine; Visit Provider Internal Medicine | DX: K92.1 Melena (principal); K64.4 Residual hemorrhoidal skin tags; R19.7 Diarrhea, unspecified; R10.9 Unspecified abdominal pain; E03.8 Other specified hypothyroidism; F41.1 Generalized anxiety disorder; Z79.899 Other long term (current) drug therapy | CPT/HCPCS: 96127 ==

== ENCOUNTER 2024-10-01 13:55 | Outpatient (REF) | payer OTHER, SELFPAY ==
[2024-10-01 17:01] LABS: TSH reflex Free T4 3.11 uIU/mL (0.32-4.0)
[2024-10-01 17:05] LABS: Folate 8.5 ng/mL (> or = 4.0); Vitamin B12 407 pg/mL (200-900)
[2024-10-01 17:11] LABS: C Reactive Protein < 0.04 mg/dL (< or = 0.50)
[2024-10-02 20:04] LABS: Transglutaminase IgA <1.0 U/mL
[2024-10-05 14:05] LABS: Vitamin D 25-OH, D2 <4 ng/mL; Vitamin D 25-OH, D3 15 ng/mL; Vitamin D 25-OH, Total 15 ng/mL (30-100)
== END 2024-10-01 13:56 | disposition home or self-care (01) ==
LOC: HO.LAB 13:55
PROVIDERS: PCP Internal Medicine; Visit Provider Nurse Practitioner Family
DX: R19.7 Diarrhea, unspecified (principal); K59.00 Constipation, unspecified; R10.9 Unspecified abdominal pain; K58.9 Irritable bowel syndrome, unspecified; E55.9 Vitamin D deficiency, unspecified
CPT/HCPCS: 82306; 82607; 82746; 84443; 86140; 86364

== ENCOUNTER 2024-10-01 13:55 | Outpatient (AMB) | payer OTHER, SELFPAY ==
--- NOTE | 2024-10-01 14:06 | MHC.OFFVIS ---
Vital Signs 10/01/24 14:07 Height 5 ft Weight 106 lb BMI 20.7 BP 113/67 Blood Pressure Location Lt brachial Position Sitting Pulse 86 Pulse Oximetry (%) 98 Oxygen Delivery Method Room Air Intake Visit Reasons: abd pain Intake Note: Patient follow up for abdominal pain. Patient cc: loose stool/diarrhea, a little cyst on top of her bottom. Coroner Transport Technician Required: No Accompanied by: Self / Same As Patient Allergies No Known Allergies [No Known Allergies*] Allergy (Verified 10/04/24 08:42) Environmental Allergy (Unknown, Uncoded 10/04/24 08:42) Unknown HPI HPI abd pain: Details: LAST VISIT 01/2023 IBS (irritable bowel syndrome) Discussed with patient will FODMAP diet. List of food recommended as well as list of food to avoid given to patient. Patient is some emptying her bowels completely. Will have her start taking Senokot and increase fluid intake and activity to promote better bowel motility. Abdominal bloating Patient reports abdominal bloating feeling full even after bowel movement. Senna as mentioned above, increase fluid intake. Low FODMAP diet Abdominal pain Patient reports low abdominal discomfort almost in pelvic area. Patient reports feeling full. Will repeat urinalysis. Will treat empirically if positive for UTI. Patient was encouraged to increase fluid intake. I will see her in 5 weeks, sooner on as needed basis. Patient is agreeable to this plan and verbalizes understanding of instructions. She was given the opportunity to ask questions and all questions answered. ? Thank you for allowing me to participate in her care Plan Orders Orders UA CC w/rflx Micro + Cult 01/26/23 R30.9 Medications New sennosides (Natural Senna Laxative) 17.2? TODAY'S VISIT Patient is here today for requested visit. Last seen in January of 2023. History of IBS with both constipation and loose stools occasionally. Patient reports that in the past few weeks she has been experiencing diarrhea. Patient also reports rectal pain. Patient denies anyone else in the household to 1 with similar symptoms. No fever chills. No recent travels. Couple episodes of blood in her stool after bowel movement. Patient denies melena, unintentional weight loss or ribbon like stools. Patient reports abdominal cramping and bloating. Patient reports occasional mucus in the home stool. Patient denies nausea or vomiting. Denies dyspepsia, dysphagia or odynophagia. PFSH Medical History Hypothyroid Depression Surgical History H/O LEEP Social History Housing: House Patient Tobacco Use Status: Never used Tobacco e-Cigarette/Vaping Use: Never Used Second Hand Smoke Exposure: No service: No Current occupational status: employed Current occupation: [employer] Current occupational exposures/hazards: No Cognitive needs: No Hearing needs: No Vision needs: No Review of Systems Const Denies weight gain and Denies weight loss ENT Reports no additional complaints, Denies dysphagia and Denies odynophagia Card Reports no additional complaints Resp Reports no additional complaints GI Reports abdominal pain (Cramping), Denies belching, Denies melena, Reports bloating, Denies change in bowel habits, Denies dysphagia, Denies excessive flatus, Denies dyspepsia, Denies heartburn, Denies diarrhea, Reports loose stools, Denies nausea, Denies odynophagia and Denies vomiting Musc Reports no additional complaints Neuro Reports no additional complaints Psych Reports no additional complaints Endo Reports no additional complaints Physical Exam Vital Signs: Last Vital Signs Pulse 86 10/01/24 14:07 BP 113/67 10/01/24 14:07 Pulse Ox 98 10/01/24 14:07 Oxygen Delivery Method Room Air 10/01/24 14:07 BMI result Body Mass Index 20.7 Const General: healthy appearing, no acute distress and well developed Nutritional Appearance: well nourished Orientation/consciousness: patient oriented x3 Resp Effort & Inspection: normal respiratory effort, able to speak in complete sentences, no tracheal deviation and symmetric chest movement Auscultation: clear to auscultation bilaterally Cardio Rate: regular rate GI Inspection: Yes normal to inspection and No distended Palpation (GI): Soft to palpation, not firm, nontender and No hepatosplenomegaly present Auscultation: normal bowel sounds Rectal Exam - Female: External hemorrhoid(s) present and Excoriation present (GI) General: Yes no CVA tenderness Back/Spine/Pelvis Back: no CVA tenderness Skin General skin exam: elasticity normal, turgor normal and dry skin Neuro General: patient oriented x3 Psych Appearance: grossly normal Mental Status: mental status grossly normal Assessment & Plan Assessment & Plan (1) Abdominal cramping: Code(s): R10.9 - Unspecified abdominal pain Category: Medical (2) Diarrhea: Code(s): R19.7 - Diarrhea, unspecified Category: Medical Qualifiers: Diarrhea type: presumed infectious Qualified Code(s): R19.7 - Diarrhea, unspecified (3) External hemorrhoid: Code(s): K64.4 - Residual hemorrhoidal skin tags Category: Medical (4) Bloody stools: Code(s): K92.1 - Melena Category: Medical (5) IBS (irritable bowel syndrome): Code(s): K58.9 - Irritable bowel syndrome, unspecified Category: Medical Qualifiers: Irritable bowel syndrome type: with constipation Qualified Code(s): K58.1 - Irritable bowel syndrome with constipation Plan Stool studies ordered. Patient will get her blood work vomits well. Will check for celiac, her vitamin B12, folate, CRP, vitamin-D level, thyroid study. Patient was encouraged to get fiber [id number]. Preferably fiber dual action with pre and probiotic. Patient may apply vitamin a and D ointment or zinc oxide to her rectal area. Patient will return in 6 months, sooner on as needed basis. If CRP positive will get fecal calprotectin. Most likely patient's symptoms are related to inadequate diet, not enough dietary fiber. Patient is agreeable to plan of care and verbalizes understanding of instructions. She was given the opportunity to ask questions and all questions answered. Thank you for allowing me to participate in her care Orders: Orders Fecal Fat Qualitative 10/01/24 R19.7 - Diarrhea, unspecified Ova and Parasite 10/01/24 R19.7 - Diarrhea, unspecified Transglutaminase IgA 10/01/24 R10.9 - Unspecified abdominal pain Vitamin B12 and Folate 10/01/24 R19.7 - Diarrhea, unspecified Leukocytes Stool Qualitative 10/01/24 R19.7 - Diarrhea, unspecified GI Panel 10/01/24 R19.7 - Diarrhea, unspecified TSH reflex Free T4 10/01/24 K59.00 - Constipation, unspecified CDiff Gene PCR 10/01/24 R19.7 - Diarrhea, unspecified C Reactive Protein 10/01/24 K58.9 - Irritable bowel syndrome, unspecified Vitamin D 25-OH (D2 and D3) 10/01/24 E55.9 - Vitamin D deficiency, unspecified Coding Level of Care Code Est Pt Level 4 (11227) Complex EM visit Add On G2211 Diagnoses Abdominal cramping R10.9 Diarrhea of presumed infectious origin R19.7 Diarrhea type: presumed infectious External hemorrhoid K64.4 Bloody stools K92.1 Irritable bowel syndrome with constipation K58.1 Irritable bowel syndrome type: with constipation Time Spent (min) 40 Comment 30 minutes spent with patient and additional 10 minutes spent reviewing her records
[2024-10-01 14:07] VITALS: BP 113/67; PULSE 86; O2SAT 98; BMI 20.7
== END 2024-10-01 15:54 | disposition home or self-care (01) ==
LOC: HO.HGI 13:56
PROVIDERS: PCP Internal Medicine; Visit Provider Nurse Practitioner Family
DX: R10.9 Unspecified abdominal pain (principal); R19.7 Diarrhea, unspecified; K64.4 Residual hemorrhoidal skin tags; K92.1 Melena; K58.1 Irritable bowel syndrome with constipation
CPT/HCPCS: 99214

== ENCOUNTER 2024-10-04 08:35 | Outpatient (AMB) | payer OTHER, SELFPAY ==
--- NOTE | 2024-10-04 08:42 | MHC.PC.OV ---
Intake Visit Reasons: GI Concerns Allergies No Known Allergies [No Known Allergies*] Allergy (Verified 10/04/24 08:42) Environmental Allergy (Unknown, Uncoded 10/04/24 08:42) Unknown Medication List - Last Reconciled 10/04/24 by Bakari Cadena MD escitalopram oxalate 15 mg (1.5 x 10 mg) PO DAILY levothyroxine 75 mcg PO DAILY lorazepam 0.5 mg PO DAILY PRN Tobacco use date assessed: 10/04/24 Dental Screening Dental Screen Date: 10/04/24 Did you have a dental visit in the last 12 months?: Yes Did you have a dental problem in the last 6 months where you did not have access to dental care?: No Was dental information given to patient?: Patient has dentist HPI GI Concerns HPI Details History - The patient is a 39-year-old female presenting with gastrointestinal symptoms. - Symptoms include diarrhea that has been occurring intermittently for almost a month, beginning on September 08. - The diarrhea is described as loose stools, differing from her usual bowel movements. - Reports previously normal bowel habits and irregular bowel movement patterns since the onset of symptoms. - Denies association with any particular food at present; a food diary has not yet been started. - Reports a history of similar symptoms during her youth, which resolved spontaneously. - Thyroid function tests show normal results, B12 levels are normal, and there are no inflammatory markers present. C-reactive protein levels are less than 0.04. - Patient's medical practice manager has ordered stool sample testing, although results are pending. - Describes a lack of concurrent symptoms such as cramping, with mild occasional stomach discomfort. - Discusses ongoing life stressors that may contribute to underlying Generalized Anxiety Disorder, including care for her grandmother and a new puppy. - Reports taking Lexapro for anxiety management; currently on 10 mg and considering an increase to 15 mg. - Reports taking lorazepam as needed for acute episodes of anxiety. Problem List - Irritable Bowel Syndrome (IBS) - Generalized Anxiety Disorder Patient Instructions - Begin maintaining a food diary to identify potential dietary triggers for symptoms. - Consider increasing Lexapro dosage to 15 mg as discussed for anxiety management, monitoring for symptom improvement. - Follow up with medical practice manager for stool sample results and further evaluation. - Temporarily eliminate dairy products such as milk and cheese to assess symptom changes. - Send a portal message next Tuesday to remind about completing necessary paperwork. - Bring any necessary paperwork by the office . Review of Systems - General: No fever no chills - Neurological: No headaches no dizziness - Ear nose throat: No sore throat no hearing difficulty no ear pain - Cardiovascular: No syncope, no chest pain, no palpitations - Gastrointestinal: No nausea vomiting - Endocrine: No polyuria polydipsia no heat intolerance - Genitourinary: No dysuria , no blood in urine PFSH Medical History Hypothyroid Depression Surgical History H/O LEEP Social History Housing: House Patient Tobacco Use Status: Never used Tobacco e-Cigarette/Vaping Use: Never Used Second Hand Smoke Exposure: No service: No Current occupational status: employed Current occupation: [employer] Current occupational exposures/hazards: No Cognitive needs: No Hearing needs: No Vision needs: No Questionnaire Thrive Questionnaire Date Thrive assessed: 07/25/24 AUDIT C Alcohol Use Questionnaire (AUDIT-C) 1. How often do you have a drink containing alcohol?: Never 3. How often do you have six or more drinks on one occasion?: Never Total Score: 0 Score Reviewed/Action Taken: Yes TRIXIE-7 AMB Questionnaire TRIXIE-7 Date TRIXIE - 7 assessed: 07/25/24 Source: Developed by Drs. Brandon Ashley, Anh Mccall, Roberto Butt and colleagues, with an educational angel from [employer]. Physical exam (Primary Care) Tobacco/Smoking Status: Tobacco use Status Tobacco use date assessed 10/04/24 10/04/24 08:43 Patient Tobacco Use Status Never used Tobacco 10/04/24 08:43 e-Cigarette/Vaping Use Never Used 10/04/24 08:43 Thrive Assessment: Date of Thrive Assessment Date Thrive assessed 07/25/24 10/04/24 08:43 Telehealth Telehealth Telehealth Platform: [facility] Location of provider rendering services: practice address Location of patient: address on file Patient Identification confirmed using: Name, : Yes Telehealth method: video Patient verbally consented to treatment: Yes Patient verbally consented to billing insurance company: Yes Patient informed of any privacy concerns related to visit: Yes Minutes spent on Phone/Video with Pt.: 16 Coding Level of Care Code Tele Est Pt Level 3 (39970) Diagnoses Panic anxiety syndrome F41.0 Irritable bowel syndrome with constipation K58.1 Irritable bowel syndrome type: with constipation Diarrhea of presumed infectious origin R19.7 Diarrhea type: presumed infectious Assessment & Plan Assessment & Plan (1) Panic anxiety syndrome: Code(s): F41.0 - Panic disorder [episodic paroxysmal anxiety] Category: Medical (2) IBS (irritable bowel syndrome): Code(s): K58.9 - Irritable bowel syndrome, unspecified Category: Medical Qualifiers: Irritable bowel syndrome type: with constipation Qualified Code(s): K58.1 - Irritable bowel syndrome with constipation (3) Diarrhea: Code(s): R19.7 - Diarrhea, unspecified Category: Medical Qualifiers: Diarrhea type: presumed infectious Qualified Code(s): R19.7 - Diarrhea, unspecified Plan History - The patient is a 39-year-old female presenting with gastrointestinal symptoms. - Symptoms include diarrhea that has been occurring intermittently for almost a month, beginning on September 08. - The diarrhea is described as loose stools, differing from her usual bowel movements. - Reports previously normal bowel habits and irregular bowel movement patterns since the onset of symptoms. - Denies association with any particular food at present; a food diary has not yet been started. - Reports a history of similar symptoms during her youth, which resolved spontaneously. - Thyroid function tests show normal results, B12 levels are normal, and there are no inflammatory markers present. C-reactive protein levels are less than 0.04. - Patient's medical practice manager has ordered stool sample testing, although results are pending. - Describes a lack of concurrent symptoms such as cramping, with mild occasional stomach discomfort. - Discusses ongoing life stressors that may contribute to underlying Generalized Anxiety Disorder, including care for her grandmother and a new puppy. - Reports taking Lexapro for anxiety management; currently on 10 mg and considering an increase to 15 mg. - Reports taking lorazepam as needed for acute episodes of anxiety. Problem List - Irritable Bowel Syndrome (IBS) - Generalized Anxiety Disorder Patient Instructions - Begin maintaining a food diary to identify potential dietary triggers for symptoms. - Consider increasing Lexapro dosage to 15 mg as discussed for anxiety management, monitoring for symptom improvement. - Follow up with medical practice manager for stool sample results and further evaluation. - Temporarily eliminate dairy products such as milk and cheese to assess symptom changes. - Send a portal message next Tuesday to remind about completing necessary paperwork. - Bring any necessary paperwork by the office . Medications: Changed From escitalopram oxalate Need a follow-up appointment 10 mg PO DAILY 90 tabs 2RF To escitalopram oxalate Need a follow-up appointment 15 mg (1.5 x 10 mg) PO DAILY 145 tabs 2RF Refilled lorazepam 0.5 mg PO DAILY PRN 14 tabs 0RF anxiety
--- OUTSIDE RECORDS SUMMARY | 2024-10-04 08:45 | XMS_ITS | Data Portability ---
Author Organization [place] [facility] Address [address] [place] [address] Care Team Providers Care Phd Intern Name Role Phone JERROD BOSE Primary Care Provider Assessment Encounter Date Assessment Date Assessment LastModified by Organization Details LastModified Time 02/06/2021 02/06/2021 Time On Scene with Patient: 01:06:20 DDX: COVID, COVID pneumonia, dehydration. Pt was met at the door with pressured speech that improved during the course of her evaluation. Pt appears to be tolerating COVID infection well at this time physiologically without any increased WOB, hypoxemia or activity intolerance. Her GI symptoms are mild and she is tolerating PO and has been for the past few days. Psychologically, her COVID diagnosis has been more mentally and emotionally challenging. Despite spending significant time reviewing her reassuring vital signs and exam findings, pt expresses fear of severe illness and . Pt is also feeling guilt as she is caring for her grandmother in the home who is also having symptoms now. Attempts to reassure her regarding this were of limited success. At this time, pt was reassured that she is doing well and to continue to treat symptoms, rest and encouraged hydration. Further, informed her she can seek re-evaluation with any concerning symptoms or feeling worse. This seemed to reassure her. She was at the door at completion of visit wth her sig other by her side. Resp easy, speech clear, gait steady. Not available 02/07/2021 09:47:20 Plan of Treatment Reminders Order Date Submit Date Provider Last Modified By Organization Details Last Modified Time Details Appointments None record ed. Lab None record ed. Referral None record ed. Procedures None record ed. Surgeries None record ed. Imaging None record ed. Medication Orders None record ed. Patient TargetsNo targets recorded. Patient Instructions Encounter Date Encounter Id Patient Instructions Last Modified By Organization Details Last Modified Time 02/06/2021 [id number] [facility] came to your home for evaluation of symptoms from your COVID infection. You have symptoms from COVID but you are tolerating it well. You are anxious about this and that is understandable. Continue to drink plenty of fluids and rest. Take ibuprofen and tylenol for pain and fever. Take as directed for this. .Follow up with your PCP as needed. If you develop shortness of breath, nausea, vomiting that does not go away, please get re-evaluated. Not available 02/06/2021 19:27:29 Reason for Referral None Reported. Medical Equipment None Reported. Allergies No known drug allergies Medications Name Sig Start Date Stop Date Status Note LastModified by Organization Details LastModified Time phenazopyri dine 200 mg tablet TAKE 1 TABLET BY MOUTH 3 TIMES A DAY FOR 2 DAYS 02/06 completed Not Available Not Available Not Available spironolact one 25 mg tablet TAKE 1 TO 2 TABLETS EVERY NIGHT TOLERATED 02/06 completed Not Available Not Available Not Available oxycodone-a cetaminophe n 5 mg-325 mg tablet TAKE 1 TABLET BY MOUTH EVERY 6 HOURS NEEDED FOR PAIN active Not Available Not Available No t Available ibuprofen 600 mg tablet TAKE 1 TABLET 4 TIMES DAILY WITH MEALS NEEDED. active Not Available Not Available No t Available drospirenon e 3 mg-ethinyl estradiol 0.03 mg tablet TAKE 1 TABLET BY MOUTH EVERY DAY active Not Available Not Available No t Available spironolact one 50 mg tablet TAKE 1 TABLET BY MOUTH TWICE A DAY 02/06 completed Not Available Not Available Not Available nitrofurant oin monohydrate /macrocryst als 100 mg capsule TAKE 1 CAPSULE BY MOUTH EVERY 12 HOURS FOR 7 DAYS WITH FOOD 02/06 completed Not Available Not Available Not Available chlorhexidi ne gluconate 0.12 % mouthwash RINSE MOUTH WITH 15ML (1 CAPFUL) FOR 30 SECONDS IN MORNING AND EVENING AFTER BRUSHING, THEN SPIT 02/06 completed Not Available Not Available Not Available tretinoin 0.05 % topical gel APPLY A PEA SIZE AMOUNT AT BEDTIME active Not Available Not Available No t Available Tri-Lo-Spri ntec 0.18 mg/0.215 mg/0.25 mg-0.025 mg tablet TAKE 1 TABLET BY MOUTH DAILY. NO SUBSTITUT IONS. PLEASE DISPENSE TRI LO SPRINTEC. 02/06 completed Not Available Not Available Not Available Vitals Date Recorded Body temperature Oxygen saturation Oxygen saturation in Arterial blood by Pulse oximetry Heart rate Respiratory rate Systolic blood pressure Diastolic blood pressure Provider Name and Address Organization Details Last Updated DateTime 100.5 [degF] 99 % 99 % 90 /min 18 /min 112 mm[Hg] 62 mm[Hg] Not Available [facility] 19:16:50 Social History None recorded. Functional Status None recorded. Mental Status None recorded. Family History Nothing Reported. Medical History No medical history recorded. Gynecological HistoryNo gynecological history recorded. Obstetrics History GPAL:G 0 P 0 0 0 0 Past Encounters Encounter ID Performer Location Encounter Start Date Encounter Closed Date Diagnosis/Indication Diagnosis SNOMED-CT Code Diagnosis ICD10 Code Diagnosis Note [id number] GERMAIN WHITAKER NP [facility] [address] [place] [address] 02/06/2021 19:10:51 02/12/2021 11:31:51 COVID-19 [id number] U07.1 Health Concerns Section Related Observation LastModified by Organization Detai ls LastModified Time None Recorded Concern Status LastModified by Organization Details LastModified Time None Recorded Advance Directives Directive None Recorded Payers Insurance Date Sequence Insurance Name Policy Number Policy Guzmán Covered Member ID Guzmán Member ID Guarantor Name 02/18/2021 1 *SELF PAY* Dimple Cantor [id number] Dimple Cantor 02/06/2021 1 *SELF PAY* Dimple Cantor [id number] Dimple Cantor 02/06/2021 1 [place] [facility] Dimple Cantor [id number] Dimple Cantor 02/18/2021 1 [facility] [employer] - HEALTH NET PLAN (MEDICAID HMO) RADHA Cantor [id number] Dimple Cantor Notes Date Note Type Note Provider Name and Address Organization Details Recorded Time 02/06/2021 text/html 35 year-old fema le with history of anxiety who calls to home for evaluation of her COVID<PT had symptoms about 7 days ago. She was tested for COVID 6 days ago and positive.Pt admits she is very anxious about this illness. She wants to know if she should go to the ED.Initial symptoms 6 days ago was fevers, nausea, vomiting, body aches, loss of taste and smell. She has been having watery bowel movements twice a day.She has not had vomiting in the past few days but intermittent nausea. She denies any cough, shortness of breath. .She feels very tired and has not had any further improvement with her symptoms for the past 2 days. She is scared that this will kill her. She is also feeling guilty as she feels she gave her grandmother COVID (lives with patient). PT did not get COVID vaccine and feels this was the reason she got sick and gave it to her family member. GERMAIN WHITAKER NP [address], [place], [address], [place] [facility] 02/07/2021 09:48:48 OBGyn Episode No OBEpisode recorded.
== END 2024-10-04 10:22 | disposition home or self-care (01) ==
LOC: HO.HMCC 08:35
PROVIDERS: PCP Internal Medicine; Visit Provider Internal Medicine
DX: K58.1 Irritable bowel syndrome with constipation (principal); F41.0 Panic disorder [episodic paroxysmal anxiety]; R19.7 Diarrhea, unspecified

== ENCOUNTER → 2024-10-04 08:35 | Outpatient (BNVA) | payer OTHER, SELFPAY | PROVIDERS: PCP Internal Medicine; Visit Provider Internal Medicine | DX: Z13.89 Encounter for screening for other disorder (principal) ==

== ENCOUNTER 2024-10-20 11:14 | Outpatient (REF) | payer OTHER, SELFPAY ==
[2024-10-22 16:03] LABS: Adenovirus F 40/41 Not Detected (Not Detect.); Astrovirus Not Detected (Not Detect.); Campylobacter Not Detected (Not Detect.); Cryptosporidium Not Detected (Not Detect.); Cyclospora cayetanensis Not Detected (Not Detect.); E. coli EAEC Not Detected (Not Detect.); E. coli EPEC Not Detected (Not Detect.); E. coli ETEC Not Detected (Not Detect.); E. coli STEC Not Detected (Not Detect.); Entamoeba histolytica Not Detected (Not Detect.); Giardia lamblia Not Detected (Not Detect.); Norovirus GI/GII Not Detected (Not Detect.); Plesiomonas shigelloides Not Detected (Not Detect.); Rotavirus A Not Detected (Not Detect.); Salmonella Not Detected (Not Detect.); Sapovirus Not Detected (Not Detect.); Shigella sp./EIEC Not Detected (Not Detect.); Vibrio Not Detected (Not Detect.); Vibrio Cholerae Not Detected (Not Detect.); Yersinia enterocolitica Not Detected (Not Detect.)
== END 2024-10-20 11:15 | disposition home or self-care (01) ==
LOC: HO.LNP 11:14
PROVIDERS: Visit Provider Nurse Practitioner Family
DX: R19.7 Diarrhea, unspecified (principal)
CPT/HCPCS: 87507

== ENCOUNTER 2024-10-21 08:40 | Outpatient (REF) | payer OTHER, SELFPAY | END 2024-10-21 08:41 | disposition home or self-care (01) | LOC: HO.LNP 08:40 | PROVIDERS: Visit Provider Nurse Practitioner Family | DX: R19.7 Diarrhea, unspecified (principal) | CPT/HCPCS: 87177; 87209 ==

== ENCOUNTER 2024-10-22 10:30 | Outpatient (REF) | payer OTHER, SELFPAY ==
[2024-10-22 11:30] LABS: Leukocytes Stool Qualitative NEGATIVE (NEGATIVE)
[2024-10-22 11:41] LABS: CDiff Gene PCR NEGATIVE (Negative)
[2024-10-25 13:53] LABS: Fecal Fat Qualitative Normal (Normal)
== END 2024-10-22 10:31 | disposition home or self-care (01) ==
LOC: HO.LNP 10:30
PROVIDERS: Visit Provider Nurse Practitioner Family
DX: R19.7 Diarrhea, unspecified (principal)
CPT/HCPCS: 82705; 87493; 89055

== ENCOUNTER 2025-01-15 08:35 | Outpatient (AMB) | payer OTHER, SELFPAY ==
[2025-01-15 08:40] VITALS: BP 112/72; PULSE 83; O2SAT 99; BMI 21.3
--- NOTE | 2025-01-15 08:40 | A.OFFPC_ITS ---
Vital Signs 01/15/25 08:40 Height 5 ft Weight 109 lb BMI 21.3 BP 112/72 Blood Pressure Location Lt brachial Position Sitting Pulse 83 Pulse Source Pulse Oximeter Pulse Oximetry (%) 99 Intake Visit Reasons: PE Allergies No Known Allergies (No Known Allergies*) Allergy (Verified 01/15/25 08:41) Environmental Allergy (Unknown, Uncoded 10/04/24 08:42) Unknown Medication List - Last Reconciled 01/15/25 by Bakari Cadena MD escitalopram oxalate 5 mg PO DAILY escitalopram oxalate 10 mg PO DAILY levothyroxine 75 mcg PO DAILY lorazepam 0.5 mg PO DAILY PRN Tobacco use date assessed: 10/04/24 Dental Screening Dental Screen Date: 10/04/24 HPI PE HPI Details History of Present Illness The patient is a 39-year-old female presenting for a general wellness visit. Anxiety: - The patient is currently taking Lexapr o in a combined dose of 15 mg daily for anxiety management. - She is experiencing a manageable level of anxiety, particularly around her menstrual cycle, but prefers not to add additional medications such as hydroxyzine. - The patient feels somewhat more anxiou s around her menstrual period, which she has been informed is normal due to hormonal changes. She is addressing it through lifestyle modifications such as exercise. Premenstrual Syndrome (PMS): - The patient reports increased anxiety symptoms around her menstrual period, which she has discussed with her PATIENT CARE. - She has been reassured that her sympto ms are normal, relating to hormonal fluctuations, and chooses not to pursue additional pharmacological interventions. Vitamin D Deficiency: - The patient was informed that her brenda min D levels were low during laboratory tests conducted in September. - She purchased vitamin D3 supplements a nd is advised to take a dose of 2000 IU daily. - She acknowledges feeling tired sometim es, which can be associated with her low Vitamin D levels. History of Minor Diverticulitis: - The patient had a colonoscopy last revealing minor diverticulitis. - No current active problems or symptoms related to diverticulitis. Medical History: - Anxiety managed with Lexapro, currentl y stable with a 15 mg daily dose. - Vitamin D deficiency identified in September ; patient started on vitamin D3 supplementation. - Minor diverticulitis detected during a colonoscopy conducted last year. 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 Health Maintenance - Recent Pap smear conducted on December 15 with normal results. - Colonoscopy last year showed minor div erticulitis; otherwise unremarkable. - Most recent Thyroid Function Tests wer e normal. - Vitamin D deficiency managed with over -the-counter supplementation. Medications - Lexapro (Escitalopram) 15 mg daily for anxiety. - Vitamin D3, 2000 IU daily for deficien cy management. Patient Instructions - Take vitamin D3 supplements, 2000 IU d aily. - Schedule blood tests when fasting for 10 hours for full lipid panel. - Engage in regular exercise to help wit h overall health and manage PMS symptoms. Follow-up six-month for Lexapro refill Review of Systems - General: No fever no chills - Neurological: No headaches no dizzin ess - Ear nose throat: No sore throat no hearing difficulty no ear pain - Cardiovascular: No syncope, no chest pain, no palpitations - Gastrointestinal: No nausea vomiting or diarrhea - Endocrine: No polyuria polydipsia no heat intolerance - Genitourinary: No dysuria - Skin: No new complaints Physical Exam General: Cooperative, healthy appearing, comfortable, no acute distress Orientation: Patient oriented x3 Limitations: None Head: Normal to inspection Ears: Within normal limit visually Nose: Normal external nose present Face and sinus: Normal facial exam Eyes: Appearance normal, extraocular movement intact pupils reactive Neck: Normal visual inspection and supple, no glands in the neck Respiratory: Normal respiratory effort and able to speak in complete sentences. Clear to auscultation, no stridor Cardiovascular: S1 and S2 RRR, no chest pains Breast exam through OBGYN GI: Normal to inspection. Soft to palpation and nontender, no nausea or vomiting, no diarrhea, no constipation Skin: Turgor normal, no acute findings Neuro: Patient oriented x3, motor sensory intact, balance intact, tandem pass, no dizziness Extremities: Normal to inspection, full range of motion all joints [facility] Medical History Hypothyroid Depression Surgical History H/O LEEP Social History Housing: House Patient Tobacco Use Status: Never used Tobacco e-Cigarette/Vaping Use: Never Used Second Hand Smoke Exposure: No service: No Current occupational status: employed Current occupation: the [employer] Current occupational exposures/hazards: No Cognitive needs: No Hearing needs: No Vision needs: No Questionnaire PHQ-9 Over the last 2 weeks, how often have you been bothered by any of the following problems? 1. Little interest or pleasure in doing things: not at all 2. Feeling down, depressed, or hopeless: not at all 3. Trouble falling or staying asleep, or sleeping too much: not at all 4. Feeling tired or having little energy: not at all 5. Poor appetite or overeating: not at all 6. Feeling bad about yourself - or that you are a failure or have let yourself or your family down: not at all 7. Trouble concentrating on things, such as reading the newspaper or watching television: not at all 8. Moving or speaking so slowly that other people could have noticed. Or the opposite - being so fidgety or restless that you have been moving around a lot more than usual: not at all 9. Thoughts that you would be better off or of hurting yourself in some way: not at all Total score: 0 Depression Screening Interpretation: Negative Depression Screening Done: Yes [id number] - PHQ-9 Billing: Yes Source: Developed by Drs. Brandon Ashley, Anh Mccall, Roberto Butt and colleagues, with an educational angel from [employer]. Thrive Questionnaire Date Thrive assessed: 07/25/24 I am a: Patient What is your living situation today?: I have a steady place to live Within the past 12 months, did the food you bought not last and you didn't have the money to get more?: Never true Within the past 12 months, did you worry whether your food would run out before you got money to buy more?: Never true Do you have trouble paying for medicines?: No Do you have trouble getting transportation to medical appointments?: No Do you have trouble paying your heating and electricity bill?: No Do you have trouble taking care of your child, family member or friend?: No Do you have trouble with day-to-day activities such as bathing, preparing meals, shopping, managing finances, etc.?: No Are you currently unemployed and looking for a job?: No Are you interested in more education?: No Please select the resources that you would like help with: None Currently or been in a relationship where the following occur: No concerns reported THRIVE Score: 0 AUDIT C Alcohol Use Questionnaire (AUDIT-C) 1. How often do you have a drink containing alcohol?: Never 3. How often do you have six or more drinks on one occasion?: Never Total Score: 0 Score Reviewed/Action Taken: Yes TRIXIE-7 AMB Questionnaire TRIXIE-7 Date TRIXIE - 7 assessed: 07/25/24 Source: Developed by Drs. Barndon Ashley, Anh Mccall, Roberto Butt and colleagues, with an educational angel from [employer]. Physical exam (Primary Care) Vital Signs: Last Vital Signs Pulse 83 01/15/25 08:40 BP 112/72 01/15/25 08:40 Pulse Ox 99 01/15/25 08:40 BMI result Body Mass Index 21.3 Tobacco/Smoking Status: Tobacco use Status Tobacco use date assessed 10/04/24 01/15/25 08:41 Patient Tobacco Use Status Never used Tobacco 01/15/25 08:41 e-Cigarette/Vaping Use Never Used 01/15/25 08:41 PHQ-9: PHQ-9 Score PHQ-9: Total score 0 01/15/25 08:53 Depression Screening Interpretation: Negative Thrive Assessment: Date of Thrive Assessment Date Thrive assessed 07/25/24 01/15/25 08:41 Currently or been in a relationship where the following occur: No concerns reported Coding Level of Care Code Est Pt Level 3 (55452) Est Pt Prev Care 18-39y(42196) Diagnoses Encounter for general adult medical examination with abnormal findings Z00.01 Tiredness R53.83 Moderate episode of recurrent major depressive disorder F33.1 Active/Remission status: currently active Major depression episode severity: moderate Anxiety, generalized F41.1 Panic anxiety syndrome F41.0 Vitamin D deficiency E55.9 Additional Codes PHQ-9 - 35588 - PHQ-9 Billing: Yes ([id number]) Assessment & Plan Assessment & Plan (1) Encounter for general adult medical examination with abnormal findings: Code(s): Z00.01 - Encounter for general adult medical examination with abnormal findings Category: Medical (2) Tiredness: Code(s): R53.83 - Other fatigue Category: Medical (3) Major depression, recurrent: Code(s): F33.9 - Major depressive disorder, recurrent, unspecified Category: Medical Qualifiers: Active/Remission status: currently active Major depression episode severity: moderate Qualified Code(s): F33.1 - Major depressive disorder, recurrent, moderate (4) Anxiety, generalized: Code(s): F41.1 - Generalized anxiety disorder Category: Medical (5) Panic anxiety syndrome: Code(s): F41.0 - Panic disorder [episodic paroxysmal anxiety] Category: Medical (6) Vitamin D deficiency: Code(s): E55.9 - Vitamin D deficiency, unspecified Category: Medical Plan History of Present Illness The patient is a 39-year-old female presenting for a general wellness visit. Anxiety: - The patient is currently taking Lexapro in a combined dose of 15 mg daily for anxiety management. - She is experiencing a manageable level of anxiety, particularly around her menstrual cycle, but prefers not to add additional medications such as hydroxyzine. - The patient feels somewhat more anxious around her menstrual period, which she has been informed is normal due to hormonal changes. She is addressing it through lifestyle modifications such as exercise. Premenstrual Syndrome (PMS): - The patient reports increased anxiety symptoms around her menstrual period, which she has discussed with her PATIENT CARE. - She has been reassured that her symptoms are normal, relating to hormonal fluctuations, and chooses not to pursue additional pharmacological interventions. Vitamin D Deficiency: - The patient was informed that her vitamin D levels were low during laboratory tests conducted in September. - She purchased vitamin D3 supplements and is advised to take a dose of 2000 IU daily. - She acknowledges feeling tired sometimes, which can be associated with her low Vitamin D levels. History of Minor Diverticulitis: - The patient had a colonoscopy last year revealing minor diverticulitis. - No current active problems or symptoms related to diverticulitis. Medical History: - Anxiety managed with Lexapro, currently stable with a 15 mg daily dose. - Vitamin D deficiency identified in September; patient started on vitamin D3 supplementation. - Minor diverticulitis detected during a colonoscopy conducted last year. 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 Health Maintenance - Recent Pap smear conducted on January 02 with normal results. - Colonoscopy last year showed minor diverticulitis; otherwise unremarkable. - Most recent Thyroid Function Tests were normal. - Vitamin D deficiency managed with [id number] supplementation. Medications - Lexapro (Escitalopram) 15 mg daily for anxiety. - Vitamin D3, 2000 IU daily for deficiency management. Patient Instructions - Take vitamin D3 supplements, 2000 IU daily. - Schedule blood tests when fasting for 10 hours for full lipid panel. - Engage in regular exercise to help with overall health and manage PMS symptoms. Follow-up six-month for Lexapro refill Orders: Orders Complete Blood Count Auto Diff Today F33.1 - Major depressive disorder, recurrent, moderate, F41.0 - Panic disorder [episodic paroxysmal anxiety], F41.1 - Generalized anxiety disorder, R53.83 - Other fatigue, Z00.01 - Encounter for general adult medical examination with abnormal findings Comprehensive Met. Panel Today F33.1 - Major depressive disorder, recurrent, moderate, F41.0 - Panic disorder [episodic paroxysmal anxiety], F41.1 - Generalized anxiety disorder, R53.83 - Other fatigue, Z00.01 - Encounter for general adult medical examination with abnormal findings Vitamin D 25-OH (D2 and D3) Today F33.1 - Major depressive disorder, recurrent, moderate, F41.0 - Panic disorder [episodic paroxysmal anxiety], F41.1 - Generalized anxiety disorder, R53.83 - Other fatigue, Z00.01 - Encounter for general adult medical examination with abnormal findings LDL Cholesterol Direct Today F33.1 - Major depressive disorder, recurrent, moderate, F41.0 - Panic disorder [episodic paroxysmal anxiety], F41.1 - Generalized anxiety disorder, R53.83 - Other fatigue, Z00.01 - Encounter for general adult medical examination with abnormal findings
== END 2025-01-15 08:58 | disposition home or self-care (01) ==
LOC: HO.HMCC 08:36
PROVIDERS: PCP Internal Medicine; Visit Provider Internal Medicine
DX: Z00.01 Encounter for general adult medical examination with abnormal findings (principal); R53.83 Other fatigue; F33.1 Major depressive disorder, recurrent, moderate; F41.1 Generalized anxiety disorder; F41.0 Panic disorder [episodic paroxysmal anxiety]; E55.9 Vitamin D deficiency, unspecified

== ENCOUNTER 2025-01-15 08:35 | Outpatient (REF) | payer OTHER, SELFPAY ==
[2025-01-15 10:50] LABS: MANUAL DIFF FLAG NO
[2025-01-15 10:56] LABS: Hematocrit 38.1 % (37.0-47.0); Hemoglobin 12.6 g/dl (12.0-16.0); Imm Gran Abs Auto 0.01 X10*3/uL (0.00-0.03); Imm Gran Pct Auto 0.3 % (0.0-0.4); Lymphocytes Absolute Auto 1.4 X10*3/uL (1.2-4.9); Mean Corpuscular HGB Conc 33.1 g/dl (31.0-35.0); Mean Corpuscular Hemoglobin 28.6 pg (27.0-33.0); Mean Corpuscular Volume 86.4 fL (80.0-98.0); NRBC Abs Auto 0.000 X10*3/uL (0.0-0.012); NRBC Pct Auto 0.0 /100WBC (0.0-0.2); Platelet Count 267 X10*3/uL (160-400); Red Blood Count 4.41 X10*6/uL (4.20-5.50); White Blood Count 3.3 X10*3/uL (4.8-10.8)
[2025-01-15 12:45] LABS: Alanine Aminotransferase 21 U/L (0-31); Albumin Level 4.5 g/dL (3.5-5.0); Alkaline Phosphatase 39 U/L (39-117); Anion Gap 9 (12-20); Aspartate Amino Transferase 27 U/L (5-31); Blood Urea Nitrogen 10 mg/dL (9-16); Calcium 8.5 mg/dL (8.4-10.2); Carbon Dioxide 23 mmol/L (22-29); Chloride 111 mmol/L (96-108); Estimated Glomerular Filt Rate > 60; Potassium 3.9 mmol/L (3.3-5.1); Sodium 139 mmol/L (135-145); Total Protein 7.5 g/dL (6.5-8.0)
[2025-01-19 15:55] LABS: Vitamin D 25-OH, D2 <4 ng/mL; Vitamin D 25-OH, D3 22 ng/mL; Vitamin D 25-OH, Total 22 ng/mL (30-100)
== END 2025-01-15 08:36 | disposition home or self-care (01) ==
LOC: HO.HMGCLDS 08:35
PROVIDERS: PCP Internal Medicine; Visit Provider Internal Medicine
DX: Z00.01 Encounter for general adult medical examination with abnormal findings (principal); R53.83 Other fatigue; F33.1 Major depressive disorder, recurrent, moderate; F41.1 Generalized anxiety disorder; F41.0 Panic disorder [episodic paroxysmal anxiety]; E55.9 Vitamin D deficiency, unspecified
CPT/HCPCS: 36415; 80053; 82306; 83721; 85025; 96127

== ENCOUNTER 2025-01-17 06:50 | Outpatient (AMB) | payer OTHER, SELFPAY ==
--- NOTE | 2025-01-17 09:34 | A.OFFPC_ITS ---
Intake Visit Reasons: lab review Allergies No Known Allergies (No Known Allergies*) Allergy (Verified 01/15/25 08:41) Environmental Allergy (Unknown, Uncoded 10/04/24 08:42) Unknown Medication List - Last Reconciled 01/17/25 by Bakari Cadena MD escitalopram oxalate 5 mg PO DAILY escitalopram oxalate 10 mg PO DAILY levothyroxine 75 mcg PO DAILY lorazepam 0.5 mg PO DAILY PRN Tobacco use date assessed: 10/04/24 Dental Screening Dental Screen Date: 10/04/24 HPI lab review HPI Details Interval History The patient is a 39-year-old female presenting with concerns regarding her recent lab results and gastrointestinal symptoms. Leukopenia: - Previous complete blood count (CBC) co nducted in January of the prior year showed a slightly low white blood cell count of 4.5 (reference range: 4.8 to 10.8). - Recent CBC demonstrated a further decr ease to 3.3. Diarrhea: - The patient has been experiencing pers istent loose stools for several months. patient reports the onset of loose stools occurring with every bowel movement for several months without normal interspersed days since the onset. - Previous evaluation by a gastroenterol ogist ruled out other conditions, with no specific treatment provided. - The patient denies taking any laxative s. - No dietary modifications have been att empted yet, and the patient expresses concern regarding potential dietary triggers. Medical History: - Irritable Bowel Syndrome (suspected, n ot formally diagnosed) - Leukopenia (noted as low white blood c ell count in recent lab tests) Social History: - The patient has not tried any dietary changes to manage her gastrointestinal symptoms. - No impact of symptoms on her work was reported. Problem List - Leukopenia - Chronic Diarrhea most likely secondary to IBS Patient Instructions - Start keeping a food diary to track me als and symptoms. - Eliminate dairy products from diet to check for lactose sensitivity. - Repeat blood lab tests in one month fo r follow-up on white cell count. Review of Systems - General: No fever no chills - Neurological: No headaches no dizziness - Ear nose throat: No sore throat no hearing difficulty no ear pain - Cardiovascular: No syncope, no chest pain, no palpitations - Gastrointestinal: No nausea vomiting - Endocrine: No polyuria polydipsia no heat intolerance - Genitourinary: No dysuria , no blood in urine PFSH Medical History Hypothyroid Depression Surgical History H/O LEEP Social History Housing: House Patient Tobacco Use Status: Never used Tobacco e-Cigarette/Vaping Use: Never Used Second Hand Smoke Exposure: No service: No Current occupational status: employed Current occupation: [employer] Current occupational exposures/hazards: No Cognitive needs: No Hearing needs: No Vision needs: No Questionnaire Thrive Questionnaire Date Thrive assessed: 07/25/24 I am a: Patient What is your living situation today?: I have a steady place to live Within the past 12 months, did the food you bought not last and you didn't have the money to get more?: Never true Within the past 12 months, did you worry whether your food would run out before you got money to buy more?: Never true Do you have trouble paying for medicines?: No Do you have trouble getting transportation to medical appointments?: No Do you have trouble paying your heating and electricity bill?: No Do you have trouble taking care of your child, family member or friend?: No Do you have trouble with day-to-day activities such as bathing, preparing meals, shopping, managing finances, etc.?: No Are you currently unemployed and looking for a job?: No Are you interested in more education?: No Please select the resources that you would like help with: None Currently or been in a relationship where the following occur: No concerns reported THRIVE Score: 0 TRIXIE-7 AMB Questionnaire TRIXIE-7 Date TRIXIE - 7 assessed: 07/25/24 Source: Developed by Drs. Brandon Ashley, Anh Mccall, Roberto Butt and colleagues, with an educational angel from [employer]. Physical exam (Primary Care) Tobacco/Smoking Status: Tobacco use Status Tobacco use date assessed 10/04/24 01/17/25 09:34 Patient Tobacco Use Status Never used Tobacco 01/17/25 09:34 e-Cigarette/Vaping Use Never Used 01/17/25 09:34 Thrive Assessment: Date of Thrive Assessment Date Thrive assessed 07/25/24 01/17/25 09:34 Currently or been in a relationship where the following occur: No concerns reported Telehealth Telehealth [facility] Location of provider rendering services: practice address Location of patient: address on file Patient Identification confirmed using: Name, : Yes Telehealth method: video Patient verbally consented to treatment: Yes Patient verbally consented to billing insurance company: Yes Patient informed of any privacy concerns related to visit: Yes Minutes spent on Phone/Video with Pt.: 13 Coding Level of Care Code Tele Est Pt Level 3 (94053) Diagnoses Neutropenia D70.9 Irritable bowel syndrome with constipation K58.1 Irritable bowel syndrome type: with constipation Diarrhea of presumed infectious origin R19.7 Diarrhea type: presumed infectious Assessment & Plan Assessment & Plan (1) Neutropenia: Code(s): D70.9 - Neutropenia, unspecified Category: Medical (2) IBS (irritable bowel syndrome): Code(s): K58.9 - Irritable bowel syndrome, unspecified Category: Medical Qualifiers: Irritable bowel syndrome type: with constipation Qualified Code(s): K58.1 - Irritable bowel syndrome with constipation (3) Diarrhea: Code(s): R19.7 - Diarrhea, unspecified Category: Medical Qualifiers: Diarrhea type: presumed infectious Qualified Code(s): R19.7 - Diarrhea, unspecified Plan Interval History The patient is a 39-year-old female presenting with concerns regarding her recent lab results and gastrointestinal symptoms. Leukopenia: - Previous complete blood count (CBC) conducted in January of the prior year showed a slightly low white blood cell count of 4.5 (reference range: 4.8 to 10.8). - Recent CBC demonstrated a further decrease to 3.3. Diarrhea: - The patient has been experiencing persistent loose stools for several months. patient reports the onset of loose stools occurring with every bowel movement for several months without normal interspersed days since the onset. - Previous evaluation by a enamel pulverizer ruled out other conditions, with no specific treatment provided. - The patient denies taking any laxatives. - No dietary modifications have been attempted yet, and the patient expresses concern regarding potential dietary triggers. Medical History: - Irritable Bowel Syndrome (suspected, not formally diagnosed) - Leukopenia (noted as low white blood cell count in recent lab tests) Social History: - The patient has not tried any dietary changes to manage her gastrointestinal symptoms. - No impact of symptoms on her work was reported. Problem List - Leukopenia - Chronic Diarrhea most likely secondary to IBS Patient Instructions - Start keeping a food diary to track meals and symptoms. - Eliminate dairy products from diet to check for lactose sensitivity. - Repeat blood lab tests in one month for follow-up on white cell count.
== END 2025-01-17 10:57 | disposition home or self-care (01) ==
LOC: HO.HMCC 06:51
PROVIDERS: PCP Internal Medicine; Visit Provider Internal Medicine
DX: D70.9 Neutropenia, unspecified (principal); K58.1 Irritable bowel syndrome with constipation; R19.7 Diarrhea, unspecified

== ENCOUNTER 2025-02-05 08:37 | Outpatient (AMB) | payer OTHER, SELFPAY ==
--- NOTE | 2025-02-05 08:43 | A.OFFVIS_ITS ---
Vital Signs 02/05/25 08:48 Height 5 ft Weight 108 lb BMI 21.1 BP 106/72 Blood Pressure Location Rt brachial Position Sitting Pulse 88 Pulse Source Pulse Oximeter Pulse Oximetry (%) 99 Oxygen Delivery Method Room Air Intake Visit Reasons: Pt req visit. Frequent diarrhea/loose stools. Intake Note: Est pt for mgmt of chronic abd pain. Pt req appt based on worsening diarrhea. CC: C.O. chronic loose stools and intermittent rectal bleeding. Pt states she cannot remember the last time she had a completely normal BM. Pt had tried taking fiber but did not like the one she had gotten so she stopped taking it. Top Former Required: No Accompanied by: Self / Same As Patient Allergies No Known Allergies (No Known Allergies*) Allergy (Verified 01/15/25 08:41) Environmental Allergy (Unknown, Uncoded 10/04/24 08:42) Unknown HPI HPI Pt req visit. Frequent diarrhea/loose stools.: Details: LAST VISIT Abdominal cramping Diarrhea External hemorrhoid Bloody stools IBS (irritable bowel syndrome) Plan Stool studies ordered. Patient will get her blood work vomits well. Will check for celiac, her vitamin B12, folate, CRP, vitamin-D level, thyroid study. Patient was encouraged to get fiber [id number]. Preferably fiber dual action with pre and probiotic. Patient may apply vitamin a and D ointment or zinc oxide to her rectal area. Patient will return in 6 months, sooner on as needed basis. If CRP positive will get fecal calprotectin. Most likely patient's symptoms are related to inadequate diet, not enough dietary fiber. Patient is agreeable to plan of care and verbalizes understanding of instructions. She was given the opportunity to ask questions and all questions answered. ? Thank you for allowing me to participate in her care Orders Fecal Fat Qualitative 10/01/24 R19.7 Ova and Parasite 10/01/24 R19.7 Transglutaminase IgA 10/01/24 R10.9 Vitamin B12 and Folate 10/01/24 R19.7 Leukocytes Stool Qualitative 10/01/24 R19.7 GI Panel 10/01/24 R19.7 TSH reflex Free T4 10/01/24 K59.00 CDiff Gene PCR 10/01/24 R19.7 C Reactive Protein 10/01/24 K58.9 Vitamin D 25-OH (D2 and D3) 10/01/24 E55.9 TODAY'S VISIT Patient is here today for requested visit. Patient continues to have postprandial loose stools. Patient has not pinpointed when this is happening and what food could cause it. Patient states that she tried fiber gummies, however she felt that they would to sweet and she stopped it. We have done extensive workup to see and evaluate what would be the cause. Patient had normal CRP, stool studies came back normal. Patient however had low vitamin-D and was recommended to start taking it. Patient reports that she takes vitamin- D daily. Patient denies melena, hematochezia, unintentional weight loss or ribbon like stools. Patient had colonoscopy last year, no polyps found PFSH Medical History Hypothyroid Depression Surgical History H/O LEEP Social History Housing: House Patient Tobacco Use Status: Never used Tobacco e-Cigarette/Vaping Use: Never Used Second Hand Smoke Exposure: No service: No Current occupational status: employed Current occupation: [employer], [employer] Current occupational exposures/hazards: No Cognitive needs: No Hearing needs: No Vision needs: No Review of Systems Const Denies weight gain and Denies weight loss ENT Reports no additional complaints, Denies dysphagia and Denies odynophagia Card Reports no additional complaints Resp Reports no additional complaints GI Reports abdominal pain (Cramping), Denies belching, Denies melena, Reports bloating, Denies change in bowel habits, Denies dysphagia, Denies excessive flatus, Denies dyspepsia, Denies heartburn, Denies diarrhea, Reports loose stools, Denies nausea, Denies odynophagia and Denies vomiting Musc Reports no additional complaints Neuro Reports no additional complaints Psych Reports no additional complaints Endo Reports no additional complaints Physical Exam Vital Signs: Last Vital Signs Pulse 88 02/05/25 08:48 BP 106/72 02/05/25 08:48 Pulse Ox 99 02/05/25 08:48 Oxygen Delivery Method Room Air 02/05/25 08:48 BMI result Body Mass Index 21.1 Const General: healthy appearing, no acute distress and well developed Nutritional Appearance: well nourished Orientation/consciousness: patient oriented x3 Resp Effort & Inspection: normal respiratory effort, able to speak in complete sentences, no tracheal deviation and symmetric chest movement Auscultation: clear to auscultation bilaterally Cardio Rate: regular rate GI Inspection: Yes normal to inspection and No distended Palpation (GI): Soft to palpation, not firm, nontender and No hepatosplenomegaly present Auscultation: normal bowel sounds Rectal Exam - Female: External hemorrhoid(s) present and Excoriation present (GI) General: Yes no CVA tenderness Back/Spine/Pelvis Back: no CVA tenderness Skin General skin exam: elasticity normal, turgor normal and dry skin Neuro General: patient oriented x3 Psych Appearance: grossly normal Mental Status: mental status grossly normal Results Reviewed Results Reviewed: Laboratory Tests 10/01/24 10/22/24 01/15/25 15:23 09:18 09:24 C-Reactive Protein < 0.04 Vitamin B12 407 25-OH Vitamin D Total 15 L 22 L Folate 8.5 TSH 3.11 Stool Fat, Qual Normal Stool Leukocytes, Qual NEGATIVE Tiss Transglutamin IgA <1.0 C. difficile Tox B Gene NEGATIVE Assessment & Plan Assessment & Plan (1) IBS (irritable bowel syndrome): Code(s): K58.9 - Irritable bowel syndrome, unspecified Category: Medical Qualifiers: Irritable bowel syndrome type: with constipation Qualified Code(s): K58.1 - Irritable bowel syndrome with constipation (2) Diarrhea: Code(s): R19.7 - Diarrhea, unspecified Category: Medical Qualifiers: Diarrhea type: presumed infectious Qualified Code(s): R19.7 - Diarrhea, unspecified (3) Abdominal cramping: Code(s): R10.9 - Unspecified abdominal pain Category: Medical (4) Neutropenia: Code(s): D70.9 - Neutropenia, unspecified Category: Medical Qualifiers: Neutropenia type: other Qualified Code(s): D70.8 - Other neutropenia Plan Will send patient to check fecal calprotectin. Her CRP was normal, however patient continues to have postprandial diarrhea. Neutropenia and leukopenia, referral to Hematology. Will repeat blood work today. Patient denies any fever or chills. So far all of her other blood work is normal. Patient was encouraged to take vitamin-D daily. Discussed with patient low FODMAP diet. List of food recommended as well as list of food to avoid given to patient. Patient will be followed up in our office as needed. Patient is agreeable to this plan and verbalizes understanding of instructions. She was given the opportunity to ask questions and all questions answered. Thank you for allowing me to participate in her care Orders: Orders Calprotectin, Fecal 02/05/25 R15.9 - Full incontinence of feces Referrals Hematology & Oncology Referral D70.9 - Neutropenia, unspecified Coding Level of Care Code Est Pt Level 4 (69616) Complex EM visit Add On [id number] Diagnoses Irritable bowel syndrome with constipation K58.1 Irritable bowel syndrome type: with constipation Diarrhea of presumed infectious origin R19.7 Diarrhea type: presumed infectious Abdominal cramping R10.9 Other neutropenia D70.8 Neutropenia type: other Time Spent (min) 40 Comment 25 minutes spent with patient and additional 15 minutes spent reviewing her records
[2025-02-05 08:48] VITALS: BP 106/72; PULSE 88; O2SAT 99; BMI 21.1
== END 2025-02-05 09:16 | disposition home or self-care (01) ==
LOC: HO.HGI 08:38
PROVIDERS: PCP Internal Medicine; Visit Provider Nurse Practitioner Family
DX: K58.1 Irritable bowel syndrome with constipation (principal); R19.7 Diarrhea, unspecified; R10.9 Unspecified abdominal pain; D70.8 Other neutropenia
CPT/HCPCS: 99214

== ENCOUNTER 2025-02-05 08:37 | Outpatient (REF) | payer OTHER, SELFPAY ==
[2025-02-05 09:42] LABS: Hematocrit 37.3 % (37.0-47.0); Hemoglobin 12.7 g/dl (12.0-16.0); Mean Corpuscular Volume 86.1 fL (80.0-98.0); Platelet Count 263 X10*3/uL (160-400); Red Blood Count 4.33 X10*6/uL (4.20-5.50)
== END 2025-02-05 08:38 | disposition home or self-care (01) ==
LOC: HO.LAB 08:37
PROVIDERS: PCP Internal Medicine; Visit Provider Nurse Practitioner Family
DX: K58.2 Mixed irritable bowel syndrome (principal); R10.9 Unspecified abdominal pain; D70.8 Other neutropenia
CPT/HCPCS: 36415; 85025

== ENCOUNTER → 2025-03-19 08:38 | Outpatient (BNV) | payer OTHER, SELFPAY | PROVIDERS: PCP Internal Medicine; Referring Provider Internal Medicine; Visit Provider Internal Medicine Medical Oncology | DX: D72.819 Decreased white blood cell count, unspecified (principal) | CPT/HCPCS: 99203 ==